=== PATIENT | female | born 2000 | race Two or more races ===

== ENCOUNTER 2024-06-13 12:07 | Emergency (ER) | payer MEDICAID, SELFPAY ==
--- NOTE | 2024-06-13 12:22 | XR_ITS ---
Examination: Complete OB ultrasound, less than 14 weeks, transabdominal Date and time of exam: June 13, 2024 at 1337 hours INDICATIONS: Onset vaginal bleeding today Technique: Obstetrical ultrasound images less than 14 weeks performed via transabdominal imaging Findings: Uterus 8.9 x 3.7 x 4.7 cm No uterine mass or intrauterine gestation Right ovary 2.5 x 1.5 x 2.8 cm arterial flow 20 mm follicular cyst Left ovary 3.0 x 2.4 x 2.9 cm arterial flow IMPRESSION: No uterine mass or intrauterine gestation.
[2024-06-13 12:35] VITALS: BP 121/79; PULSE 82; RESP 16; TEMP 36.9; O2SAT 99; BMI 34.0
[2024-06-13 12:59] LABS: Basophils # (Auto) 0.1 Thou/mm3 (0.0-0.2); Basophils % (Auto) 1 % (0-2.5); Eosinophils # (Auto) 0.1 Thou/mm3 (0.0-0.5); Eosinophils % (Auto) 2 % (0-10); Hemoglobin 13.9 g/dL (12.0-16.0); Immature Granulocytes % (Auto) 0 % (0-0); Immature Granulocytes Auto 0.02 Thou/mm3 (0.00-0.00); Lymphocytes # (Auto) 2.1 Thou/mm3 (1.0-4.8); Lymphocytes % (Auto) 24 % (10-50); Mean Corpuscular HGB Conc 33.1 g/dl (31.0-37.0); Mean Corpuscular Hemoglobin 28.1 pg (25.0-35.0); Mean Corpuscular Volume 85 fL (80-100); Monocytes # (Auto) 0.5 Thou/mm3 (0.0-0.8); Monocytes % (Auto) 6 % (0-12); Neutrophils # (Auto) 5.9 Thou/mm3 (1.8-7.7); Neutrophils % (Auto) 68 % (37-80); Nucleated Red Blood Cell % 0 /100 WBC (0); Platelet Count 311 Thou/mm3 (140-440); RDW Standard Deviation 42.1 fL (36.4-46.3); Red Blood Count 4.95 Miln/mm3 (4.00-5.20); White Blood Count 8.7 Thou/mm3 (3.6-11.0)
[2024-06-13 13:53] LABS: Alanine Aminotransferase 45 U/L (10-49); Albumin, Serum 5.3 gm/dL (3.5-5.0); Aspartate Amino Transferase 30 U/L (0-34); BUN/Creatinine Ratio 14 Ratio (12-20); Bilirubin,Total 0.4 mg/dL (0.3-1.2); Blood Urea Nitrogen 10 mg/dL (9-23); Calcium 10.3 mg/dL (8.3-10.6); Calcium (Corrected) 10.3 mg/dL (8.5-10.1); Chloride 103 mMol/L (98-107); Creatinine (Component) 0.7 mg/dL (0.6-1.3); Estimated Creatinine Clearance 114.2 mL/min (>60); Glucose 96 mg/dL (74-106); Osmolality,Calculated 274 (275-295); Potassium 4.2 mMol/L (3.4-5.1); Sodium 138 mMol/L (136-145); Total Protein 8.3 gm/dL (5.7-8.2); eGFR > 60 See Note
[2024-06-13 13:54] LABS: Albumin/Globulin Ratio 1.8 (1.2-2.2); Alkaline Phosphatase 90 U/L (46-116); Beta HCG,Quantitative 3 mIU/mL (<5.0)
[2024-06-13 14:02] LABS: Anion Gap 9 (7-16); Carbon Dioxide 26.2 mMol/L (20.0-31.0)
--- NOTE | 2024-06-13 14:40 | PD.EDVAGBL ---
ED OB Contraction Preg RMI/HPI General Chief complaint: Vaginal Bleeding Stated complaint: VAGINAL BLEEDING (UNKNOWN WEEKS IUP) Time Seen by Provider: 06/13/24 12:16 Arrival date/time: 06/13/24 12:07 24-year-old female presents to the emergency department today states she had positive test at home patient reports vaginal spotting Limitations: no limitations Related Data Home Medications ?Medication ?Instructions ?Recorded ?Confirmed prenat.vits,dina,[id number] 1 tab PO QDAY 02/16/21 06/30/21 Allergies Allergy/AdvReac Type Severity Reaction Status Date / Time No Known Allergies Allergy Verified 06/13/24 12:09 Review of Systems Review of Systems Systems Reviewed: All systems reviewed, normal except as documented Constitutional Constitutional: Reports system reviewed and no additional complaints, except as documented, Denies fever(s) and Denies headache(s) Eyes Eyes: Reports system reviewed and no additional complaints, except as documented and Denies blurry vision ENT Ears, Nose, Mouth, and Throat: Reports system reviewed and no additional complaints, except as documented, Denies headache(s), Denies nasal congestion and Denies nasal discharge Cardiovascular Cardiovascular: Reports system reviewed and no additional complaints, except as documented, Denies chest pain and Denies dyspnea Respiratory Respiratory: Reports system reviewed and no additional complaints, except as documented, Denies chest congestion, Denies cough and Denies dyspnea Gastrointestinal Gastrointestinal: Reports system reviewed and no additional complaints, except as documented and Denies abdominal pain Genitourinary Genitourinary: Reports system reviewed and no additional complaints, except as documented and Reports abnormal vaginal bleeding Integumentary/Breasts Skin/Breast: Reports system reviewed and no additional complaints, except as documented and Denies rash Neurologic Neurologic: Reports system reviewed and no additional complaints, except as documented, Reports as per HPI and Denies headache(s) Past Medical History Past Medical History NEUROLOGIC: Negative Neurological Disorders CARDIAC: Negative Cardiac Disorders or Congestive Heart Failure RESPIRATORY: Negative Chronic Obstructive Pulmonary Disease (COPD) GASTROINTESTINAL: Negative Gastrointestinal Disorders or Hepatitis GENITOURINARY: Positive Genitourinary Disorders and Kidney Stones (Surgery 2016); Negative Renal Disease REPRODUCTIVE: Negative Endometriosis, Pelvic Inflammatory Disease, Previous Pregnancies or Uterine Prolapse MUSCULOSKELETAL: Negative Musculoskeletal Disorders ENDOCRINE: Negative Endocrine Disorders, Diabetes Mellitus Type 1 or Diabetes Mellitus Type 2 HEMATOLOGIC: Negative Blood Disorders OTHER HISTORY: Positive Hospitalization (Kidney Stones 2016) and Chicken Pox (approx 5y/o); Negative Autoimmune Disease, Down Syndrome, Developmental Delay, Shingles, Falls, Blood Transfusions, Blood Transfusion Reaction, Anesthesia Reactions, Organ Transplant, Chemotherapy, Radiation Therapy, Hyperbaric Therapy, MRSA, VRSA, Vancomycin-Resistant Enterococci, Human Immunodeficiency Virus (HIV), Measles, Mumps, Rubella (Citizen [place] Measles), Pertussis, Clostridium Difficile or Cancer Family History FAMILY HISTORY: Negative Family Psychiatric Problems, Family Respiratory Disorders, Family Cardiac Disorders, Family Gastrointestinal Problems, Family Cancer, Family Surgery or Family Anesthesia Reaction Surgical History SURGICAL: Negative Cardiac Surgery, Endocrine Surgery, Ear Surgery, Abdominal Surgery, Nephrectomy, Transurethral Resection, Joint Replacement, Neurologic Surgery, Mastectomy, Lumpectomy, Hysterectomy, Tubal Ligation, Section or Organ Transplant Social History SMOKING STATUS: Never smoker SECOND HAND EXPOSURE: No ED Exam General Limitations: Present no limitations General appearance: Present alert and in no apparent distress Head Head exam: Present atraumatic Eye Eye exam: Present normal appearance, PERRL and EOMI; Absent conjunctival injection ENT ENT exam: Present normal exam, normal oropharynx and mucous membranes moist Neck Neck exam: Present normal inspection, full ROM and trachea midline Chest Chest inspection: Present normal inspection and symmetric chest wall rise Respiratory Respiratory exam: Present normal lung sounds bilaterally; Absent respiratory distress Cardiovascular Cardiovascular exam: Present regular rate, normal rhythm and normal heart sounds Abdominal Exam Abdominal exam: Present soft and normal bowel sounds; Absent distention, tenderness, guarding, rebound, rigidity, Banda's sign or tenderness at McBurney's Point Abdominal tenderness: Absent RUQ or RLQ Extremities Exam Extremities exam: Present normal inspection and full ROM Back Exam Back exam: Present normal inspection and full ROM Neurological Exam Neurological exam: Present alert, oriented X3 and CN II-XII intact Psychiatric Psychiatric exam: Present normal affect and normal mood Skin Skin exam: Present warm, dry, intact and normal color; Absent rash Course Quality Measures none Orders Category Date Time Status US OB <= 14 weeks fetus Stat Exams 06/13/24 12:22 Completed ABO/RH Type Stat Lab 06/13/24 12:46 Completed Beta HCG,Quantitative Stat Lab 06/13/24 12:46 Completed CBC Stat Lab 06/13/24 12:46 Completed Comprehensive Metabolic Panel Stat Lab 06/13/24 12:46 Completed Vital Signs Vital signs: Vital Signs Temperature 98.4 F 06/13/24 12:35 Pulse Rate 82 06/13/24 12:35 Respiratory Rate 16 06/13/24 12:35 Blood Pressure 121/79 06/13/24 12:35 Pulse Oximetry (%) 99 06/13/24 12:35 Oxygen Delivery Method Room Air 06/13/24 12:35 O2 saturation 99% room air within normal limits Vaginal Bleeding MDM Narrative MDM Narrative: 24-year-old female presents to the emergency department today states she had positive test at home patient reports vaginal spotting On exam patient does not appear ill or toxic in no acute distress Lab work as well as ultrasound obtained Lab work hCG is 3 ultrasound shows no evidence of I explained to the patient most likely that she will not have a baby and this is most likely missed but she will have to have repeat lab work to confirm this Patient discharged home in no distress to follow-up with primary care doctor in the next 24 to 48 hours and for any worsening symptoms to return to the ER immediately Patient data External records reviewed:: [facility] previous records Clinical information provided by:: patient Social determinants that could affect healthcare access:: none Patient has the following chronic illnesses:: None How is presenting disease/condition affected by chronic disease/condition?: no chronic disease Evaluation data The following diagnostics were reviewed and interpreted by me:: lab results and radiology exam(s) Lab and/or radiology exams considered but not ordered:: Labs radiology obtained Interpretation Summary: Reviewed by me Medications / Prescriptions Medications or Prescriptions considered but not ordered:: Given no meds Medication administrations:: Given no meds Consultations Consultation(s) initiated? (list below): No Diagnosis Vaginal Bleeding Differential Diagnosis: missed and threatened Most likely diagnosis given after review of the tests above:: Threatened Admission Indicated Admission indicated?: not indicated Admission Request Was there a request for admission?: No Disposition Plan Disposition Plan: Discharge Discharge Attestation Discharge Attestation: The patient and all family members were given an opportunity to ask questions and understood the discharge instructions. Discharge instructions specifically effects, indications for sooner follow up or return to the emergency department, and the expected course of current diagnosis. Patient condition: Stable Discharge Plan Plan Patient Disposition: HOME (Self Care) Disposition Comment: Stable Prescriptions/Referrals Prescriptions/Med Rec: No Action Vitamin Tablet 1 tab PO QDAY Referrals: Matheus Palacios MD [Primary Care Provider] - 06/14/24 Problem List Clinical Impression: Vaginal bleeding Patient/Caregiver Discharge Instructions Education Materials: Understanding Uterine Bleeding Additional Instructions: Please follow up with your primary care doctor in the next 24-48hrs for any worsening symptoms return here immediately Print Language: Luxembourgish Stand Alone Forms: Gill Award Info., Patient Portal Info Letter Attestation Attestation The patient was seen by the midlevel practitioner. I, the co-signing physician, was present during the entire ER visit. While I did not physically examine the patient, I was available for consultation as needed.
== END 2024-06-13 14:43 | disposition home or self-care (01) ==
PROVIDERS: Nurse Practitioner Primary Care; Emergency Provider Emergency Medicine; PCP Family Medicine
DX: N93.9 Abnormal uterine and vaginal bleeding, unspecified (principal)
CPT/HCPCS: 36415; 76801; 80053; 84702; 85025; 86900; 86901; 99284

== ENCOUNTER 2024-10-30 15:29 | Outpatient (AMB) | payer MEDICAID, SELFPAY ==
[2024-10-30 15:35] VITALS: BP 128/77; PULSE 105; RESP 18; TEMP 36.2; O2SAT 98; BMI 33.0
--- NOTE | 2024-10-30 15:35 | OBCLNT_ITS ---
Vital Signs 10/30/24 15:35 Height 1.52 m Height Method Stated Weight 76.374 kg Weight Measurement Method Standing Scale BMI 33.0 BP 128/77 Blood Pressure Source Automatic Cuff Blood Pressure Location Left Upper Arm Position Sitting Respiration 18 Pulse 105 H Pulse Source Monitor Temp 97.2 F Temp Source Oral Pulse Oximetry (%) 98 Oxygen Delivery Method Room Air Allergies/Home Meds Allergies & Medications Allergies No Known Allergies Allergy (Verified 10/30/24 15:36) Medication Reconciliation prenat.vits,dina,[id number] 1 tab PO QDAY 02/16/21 [History Confirmed 10/30/24] ondansetron 4 mg disintegrating tablet 4 mg PO Q6H PRN nausea and vomiting 30 days #120 tabs 10/16/24 [Rx Confirmed 10/30/24] Intake Visit Data Collection New Patient or Established: Established Patient (seen at [facility] within 3 years) Reason for Visit:: 2-week follow-up status-post initial OB visit Seen by Clinical Staff ONLY (RN/MA): No Bicycle Repair Technician Required: No Do You Feel Safe at Home: Yes Authorities Contacted: N/A PCP or OBGYN visit in last 3 months: Yes Date of Last PCP or OBGYN visit: 10/16/24 Hx Now: Yes Are you currently on any form of Control: No Pain Present Currently: No Pain Scale Used: Harding-Bradford/Numerical Pain scale:: 0 Smoking Status Smoking Status: Never smoker Questionnaires Covid-19 Vaccine Questionnaire Has patient been vacinated for Covid-19 Have you been vacinated for Covid-19: Yes PHQ-9 PHQ-2 Over the last 2 weeks, how often have you been bothered by any of the following problems? 1. Little interest or pleasure in doing things: not at all 2. Feeling down, depressed, or hopeless: not at all Total score: 0 PHQ-9 3. Trouble falling or staying asleep, or sleeping too much: Not at all 4. Feeling tired or having little energy: Not at all 5. Poor appetite or overeating: Not at all 6. Feeling bad about yourself - or that you are a failure or have let yourself or your family down: Not at all 7. Trouble concentrating on things, such as reading the newspaper or watching television: Not at all 8. Moving or speaking so slowly that other people could have noticed? - Or the opposite - being so fidgety or restless that you have been moving around a lot more than usual: not at all 9. Thoughts that you would be better off or of hurting yourself in some way: Not at all Total score: 0 If you checked off any problems, how difficult have these problems made it for you to do your work, take care of things at home, or get along with other peopl e?: not difficult at all Source: Developed by Drs. Luc Haji, Lacey Marion, Con Tejeda and colleagues, with an educational christa from [employer]. 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: Yes Past Medical History Past Medical History Have you ever been diagnosed with any of the following: Neurological Problems Cerebrovascular Accident (CVA): No Transient Ischemic Attacks (TIA): No Dementia: No Alzheimer's Disease: No Parkinson's Disease: No Brain Tumor: No Guillain-Katy Syndrome: No Cardiology Problems Myocardial Infarction: No Cardiac Arrhythmia: No Atrial Fibrillation: No Angina: No Congestive Heart Failure: No Respiratory Problems Chronic Obstructive Pulmonary Disease (COPD): No Asthma: No Bronchitis: No Emphysema: No Hx Cough: No Cough: No Wheezing: No Chest Deformities: No Smoking: No Smoking Cessation Counseling: No Smoking Exposure: No Tobacco Use: No Stomache/Intestinal Problems Liver Cancer: No Hepatitis: No Gall Bladder Disease: No Gaming's Esophagus: No Colitis: No Ulcerative Colitis: No Genital/Urinary Problems Renal Disease: No Kidney Stones: Yes (Surgery 2016) Reproductive Problems Endometriosis: No Pelvic Inflammatory Disease: No Previous Pregnancies: Yes Uterine Prolapse: No Head,Eye,Nose,Throat Problems Cataracts: No Glaucoma: No Blind: No Retinal Detachment: No Macular Degeneration: No Chronic Ear Infections: No Deafness: No Eye Prosthesis: No Endocrine Problems Diabetes Mellitus Type 1: No Diabetes Mellitus Type 2: No Blood Problems Anemia: No Leukemia: No Hemophilia: No Thalassemia: No Psychologic Problems Schizophrenia: No Recreational Drug Use: No Bipolar Disorder: No Depression: No Anxiety: No Behavior Problems: No Other Problems Hospitalization: Yes (Kidney Stones 2015) Down Syndrome: No Developmental Delay: No Shingles: No Falls: No Blood Transfusions: No Blood Transfusion Reaction: No Anesthesia Reactions: No Organ Transplant: No Chemotherapy: No Radiation Therapy: No Hyperbaric Therapy: No MRSA: No VRSA: No Vancomycin-Resistant Enterococci: No Human Immunodeficiency Virus (HIV): No Chicken Pox: Yes (approx 5y/o) Measles: No Mumps: No Rubella ([place] Measles): No Pertussis: No Clostridium Difficile: No Cancer: No Surgical History Hysterectomy: No History of Present Illness HPI Narrative Lizzie Hernandez presents for a 2-week follow-up after her initial OB visit. She is currently and at approximately 15 weeks gestation based on her last menstrual period of July 13. The patient's primary concern during this visit was clarification of her gestational age and estimated due date. She noted a discrepancy between the ultrasound measurements from her previous visit, which showed 13 weeks and 4 days, and the doctor's initial assessment of 9 weeks. After discussion and review of dates, it was determined that the patient is likely around 15 weeks , with a tentative due date of April 19. However, this will be confirmed at her upcoming 20-week ultrasound with a specialist. Lizzie reports no specific complaints or concerns regarding her at this time. She appears to be adhering to her care plan and is following up as recommended. Obstetric History - GPAL: A0 L0 - Current : - Estimated due date: April 19, 2025 (working date based on LMP) - Last menstrual period: July 13, 2024 - Gestational age: 15 weeks 4 days (as of October 30, 2024) Review of Systems Review of Systems Systems Reviewed: All systems reviewed, normal except as documented Visit OB Visit Log OB Flowsheet Initial Weight: Not Recorded Date -?-?-?-?-?-?-?-?-?-?-?-?- EGA Weight Edema CTX Effacement BP Fundal ht Pres Dilation Effacement Station Visit Note Alb Glu FHR Mov 10/30/24 -?-?-?-?-?-?-?-?-?-?-?-?- 15w 4d 76.374 kg 128/77 Labo ratory, Imaging, and Diagnostic Test Results - labs: - Hepatitis B: Negative - Hepatitis C: Negative - RPR: Non-reactive - Rubella: Non-immune - ABO blood type: O - Rh factor: Positive - Antibody screen: Negative - HIV: Negative - Gonorrhea: Negative - Chlamydia: Negative - CBC: - Hemoglobin: 13.2 g/dL - Platelets: 269 - Maternity 21 genome testing: - Negative screening for trisomies and commonly tested genetic mutations - gender: Female - Ultrasound: - Gestational age: 13 weeks and 4 days . Plan: - Estimated due date (PANDA) tentatively s et as April 19, pending confirmation at anatomy ultrasound - Referral to [facility] for 20-week anatomy ultrasound - Office staff to schedule appointment and obtain insurance approval - Follow-up appointment in one month - Await specialist ultrasound to confirm gestational age and PANDA 145 PANDA Calculator Estimated Delivery Date Method Current WG Current Estimate 04/19/25 LMP (Certain) 15w 4d Exam General Limitations: no limitations General Appearance: alert, in no apparent distress, comfortable, cooperative, healthy appearing, well developed and well groomed Head Head exam: atraumatic, normocephalic and normal inspection Chest Chest inspection: Present normal inspection and symmetric chest wall rise Abdominal Abdominal exam: Present soft and normal bowel sounds Psych Psychiatric exam: Present normal affect and normal mood Skin Skin exam: Present warm, dry, intact and normal color Assessment & Plan Diagnosis / Problem List (1) Supervision of high risk , unspecified, second trimester: Status: Acute Plan Lizzie Hernandez presents for a 2-week follow-up after initial OB visit at approximately 15 weeks gestation. Intrauterine Assessment: Patient is at approximately 15 weeks gestation based on last menstrual period (LMP) of July 13. Initial ultrasound measurements showed some discrepancy, measuring at 9 weeks when LMP calculations suggested 13 weeks. labs, including CBC, hepatitis B and C, RPR, HIV, gonorrhea, and chlamydia screening, were all negative or within normal limits. Maternity 21 genome testing was negative for trisomies and commonly tested genetic mutations. Blood type is O positive with negative antibody screen. Patient is rubella non- immune. Plan: - Estimated due date (PANDA) tentatively set as April 19, pending confirmation at anatomy ultrasound - Referral to [facility] for 20-week anatomy ultrasound - Office staff to schedule appointment and obtain insurance approval - Follow-up appointment in one month - Await specialist ultrasound to confirm gestational age and PANDA Educated the patient on the importance of care, including taking vitamins with folic acid, iron, and calcium. Emphasized avoiding alcohol, smoking, and certain medications. Discussed common symptoms like nausea and fatigue, advising small, frequent meals and adequate hydration. Explained the need for regular check-ups and recommended safe physical activities. Instructed on signs of complications, such as severe cramping or bleeding, and when to seek immediate medical attention. Highlighted the importance of a balanced diet and avoiding high-risk foods. Encouraged open communication about any concerns or questions. Encouraged keeping up with all appointments and tests Office Procedures OB Clinic LOC & Office Proc's Nursing/Assessment Patient Status: Established Patient OB Clinic Nursing Assessment: BP Monitoring, Medication Reconciliation, Update PMH in EMR and Vital Signs OB Clinic Coordination of Care: Consent,records obtained, informed consent, Lab and Imaging orders and Staff clarify orders Special Needs: Heart tones Established Patient Charge Established Patient Point Assignment: 105 Established Patient Point Charge: EP Level 3 (80-115)
== END 2024-10-30 16:08 | disposition home or self-care (01) ==
LOC: HODSOBC 15:29
PROVIDERS: PCP Family Medicine; Referring Provider Family Medicine; Supervising Provider Obstetrics & Gynecology; Visit Provider Obstetrics & Gynecology
DX: O09.92 Supervision of high risk pregnancy, unspecified, second trimester (principal); Z3A.15 15 weeks gestation of pregnancy; Z78.9 Other specified health status
CPT/HCPCS: 99213; G0463

== ENCOUNTER 2024-11-27 14:08 | Outpatient (AMB) | payer MEDICAID, SELFPAY ==
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
[2024-11-27 14:23] VITALS: BP 124/77; PULSE 89; RESP 18; TEMP 36.2; O2SAT 98; BMI 32.4
== END 2024-11-27 14:32 | disposition home or self-care (01) ==
LOC: HODSOBC 14:08
PROVIDERS: PCP Obstetrics & Gynecology; Referring Provider Obstetrics & Gynecology; Supervising Provider Obstetrics & Gynecology; Visit Provider Obstetrics & Gynecology
DX: O09.92 Supervision of high risk pregnancy, unspecified, second trimester (principal); Z3A.19 19 weeks gestation of pregnancy
CPT/HCPCS: 99213; G0463

== ENCOUNTER 2024-12-09 17:39 | Observation (INO) | payer MEDICAID, SELFPAY ==
[2024-12-09] VITALS (14 sets, daily range): BP systolic 119; BP diastolic 74; PULSE 79–109; RESP 18–99; TEMP 36.8; O2SAT 93–100; BMI 31.8
--- NOTE | 2024-12-09 18:07 | XR_ITS ---
Examination: Complete OB ultrasound greater than 14 weeks Date and time of exam: December 09, 2024 1858 hours INDICATIONS: Pelvic pain beginning 4 days ago, labor evaluation Findings: Viable intrauterine single fetus with single amniotic sac presentation cephalic Cardiac motion 150 BPM Placenta anterior grade 1 Umbilical cord insertion seen Amniotic fluid index 13.8 cm spine posterior Cervix 2.2 cm Right ovary 3.4 cm artery outflow left ovary 1.8 cm arterial flow. Composite estimated gestational age based on BPD, head circumference, abdominal circumference, femur length is 17 weeks 2 days Estimated weight 184 g. Survey of intracranial anatomy, spinal anatomy, abdominal anatomy, four-chamber heart performed with no abnormalities identified. Impression: Viable intrauterine gestation cephalic presentation.
[2024-12-09] MEDS: ACETAMINOPHEN 325 MG TABLET 650 MG PO (18:25)
== END 2024-12-09 20:30 | disposition home or self-care (01) ==
PROVIDERS: Admitting Provider Obstetrics & Gynecology; Visit Provider Obstetrics & Gynecology
DX: O26.892 Other specified pregnancy related conditions, second trimester (principal); Z3A.17 17 weeks gestation of pregnancy; R10.2 Pelvic and perineal pain; M54.9 Dorsalgia, unspecified
CPT/HCPCS: 59025; 59899; 76805; G0378; A9270

== ENCOUNTER 2024-12-25 15:05 | Outpatient (AMB) | payer MEDICAID, SELFPAY ==
--- NOTE | 2024-12-25 15:50 | OBCLNT_ITS ---
Vital Signs 12/25/24 15:52 Weight 75.807 kg Weight Measurement Method Standing Scale BP 113/73 Blood Pressure Source Automatic Cuff Blood Pressure Location Right Upper Arm Position Sitting Respiration 17 Pulse 101 H Pulse Source Monitor Temp 98.2 F Temp Source Temporal Artery Scan Pulse Oximetry (%) 97 Oxygen Delivery Method Room Air Allergies/Home Meds Allergies & Medications Allergies No Known Allergies Allergy (Verified 12/25/24 15:53) Medication Reconciliation prenat.vits,dina,[id number] 1 tab PO QDAY 02/16/21 [History Confirmed 12/25/24] ondansetron 4 mg disintegrating tablet 4 mg PO Q6H PRN nausea and vomiting 30 days #120 tabs 10/16/24 [Rx Confirmed 12/25/24] Intake Visit Data Collection New Patient or Established: Established Patient (seen at [facility] within 3 years) Reason for Visit:: OBC Seen by Clinical Staff ONLY (RN/MA): No It Program Manager Required: No Do You Feel Safe at Home: Yes Authorities Contacted: N/A PCP or OBGYN visit in last 3 months: Yes Date of Last PCP or OBGYN visit: 12/09/24 Hx Now: Yes Are you currently on any form of Control: No Pain Present Currently: No Pain Scale Used: Harding-Bradford/Numerical Pain scale:: 0 Smoking Status Smoking Status: Never smoker Questionnaires Covid-19 Vaccine Questionnaire Has patient been vacinated for Covid-19 Have you been vacinated for Covid-19: No PHQ-9 PHQ-2 Over the last 2 weeks, how often have you been bothered by any of the following problems? 1. Little interest or pleasure in doing things: not at all 2. Feeling down, depressed, or hopeless: not at all Total score: 0 PHQ-9 3. Trouble falling or staying asleep, or sleeping too much: Not at all 4. Feeling tired or having little energy: Not at all 5. Poor appetite or overeating: Not at all 6. Feeling bad about yourself - or that you are a failure or have let yourself or your family down: Not at all 7. Trouble concentrating on things, such as reading the newspaper or watching television: Not at all 8. Moving or speaking so slowly that other people could have noticed? - Or the opposite - being so fidgety or restless that you have been moving around a lot more than usual: not at all 9. Thoughts that you would be better off or of hurting yourself in some way: Not at all Total score: 0 If you checked off any problems, how difficult have these problems made it for you to do your work, take care of things at home, or get along with other people?: not difficult at all Source: Developed by Drs. Luc Haji, Lacey Marion, Con Tejeda and colleagues, with an educational christa from [employer]. 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 No contractions, LOF, VB and reports good FM. Denies GUADALUPE, VC, and epigastric pain. - Lizzie Hernandez is a 2 para 1 at 23 weeks and 4 days gestation presenting for routine care. - Estimated due date: 04/19/2025 - Last seen 4 weeks ago for routine visit, reported doing well at that time. - Maternal ultrasound was scheduled, but patient reports not being called for appointment yet. - Patient was given lab slip for glucose screening at previous visit. - Denies any new symptoms or concerns. Review of Systems Review of Systems Systems Reviewed: All systems reviewed, normal except as documented Care OB Visit Log OB Flowsheet Initial Weight: Not Recorded Date -?-?-?-?-?-?-?-?-?-?-?-?- EGA Weight BP Alb Glu CTX Pres Fundal ht FHR Mov Dilation Station Effaceme nt Hx Notes Visit Note 10/30/24 -?-?-?-?-?-?-?-?-?-?-?-?- 15w 4d 76.374 kg 128/77 145 Laboratory, Imaging, and Diagnostic Test Results - labs: - Hepatitis B: Negative - Hepatitis C: Negative - RPR: Non-reactive - Rubella: Non-immune - ABO blood type: O - Rh factor: Positive - Antibody screen: Negative - HIV: Negative - Gonorrhea: Negative - Chlamydia: Negative - CBC: - Hemoglobin: 13.2 g/dL - Platelets: 269 - Maternity 21 genome testing: - Negative screening for trisomies and commonly tested genetic mutations - gender: Female - Ultrasound: - Gestational age: 13 weeks and 4 days . Plan: - Estimated due date (PANDA) tentatively s et as April 19, pending confirmation at anatomy ultrasound - Referral to [facility] in [place] for 20-week anatomy ultrasound - Office staff to schedule appointment and obtain insurance approval - Follow-up appointment in one month - Await specialist ultrasound to confirm gestational age and PANDA 11/27/24 -?-?-?-?-?-?-?-?-?-?-?-?- 19w 4d 74.956 kg 124/77 at 19 weeks and 4 days gestation, presents for routine care. Reports feeling well with active FM+, mild back pain considered normal. Denies nausea, vomiting, or cramping. labs completed; awaiting MFM anatomy ultrasound. Needs vitamin refill. FHT 163 bpm. Plan: Refill vitamins ([facility]) Lab slip for glucose screen Reminder for MFM anatomy scan Follow-up in 2 weeks precautions 12/25/24 -?-?-?-?-?-?-?-?-?-?-?-?- 23w 4d 75.807 kg 113/73 at 23w4d with PANDA 04/19/25 presents for routine care. Reports good FM, no CTX/LOF/VB. Denies GUADALUPE/VC/epigastric pain. One-hour GTT was 125 mg/dL (normal). Patient states MFM ultrasound was scheduled but she hasn?t been contacted. Concerned about position, but this is normal for gestational age. No new complaints. Plan: Will call [facility]?s to gurmeet simona [facility] appointment status. Patient to complete anatomy scan at [facility]. Continue routine care. Review results when available. Reinforce FM monitoring, preeclampsia precautions, and safety planning for third trimester. Follow up in 4 weeks. PANDA Calculator Estimated Delivery Date Method Current WG Current Estimate 04/19/25 LMP (Certain) 23w 5d Exam General General Appearance: alert, in no apparent distress and healthy appearing Head Head exam: atraumatic Neck Neck exam: Present normal inspection and trachea midline Chest Chest inspection: Present normal inspection and symmetric chest wall rise External exam: Present normal external exam; Absent tenderness Neuro Neurological exam: Present oriented X3 Psych Psychiatric exam: Present normal affect and normal mood Office Procedures OB Clinic LOC & Office Proc's Nursing/Assessment Patient Status: Established Patient OB Clinic Nursing Assessment: Medication Reconciliation, Update PMH in EMR and Vital Signs OB Clinic Coordination of Care: Complex Care and Chronic Disease 1-5, Consent,records obtained, informed consent, Education Simp Pt/Fam and Staff clarify orders Special Needs: Heart tones Established Patient Charge Established Patient Point Assignment: 115 Established Patient Point Charge: EP Level 3 (80-115) Assessment & Plan Diagnosis / Problem List (1) Supervision of high risk , unspecified, second trimester: Status: Acute
[2024-12-25 15:52] VITALS: BP 113/73; PULSE 101; RESP 17; TEMP 36.8; O2SAT 97
== END 2024-12-25 16:25 | disposition home or self-care (01) ==
LOC: HODSOBC 15:05
PROVIDERS: PCP Obstetrics & Gynecology; Referring Provider Obstetrics & Gynecology; Supervising Provider Obstetrics & Gynecology; Visit Provider Obstetrics & Gynecology
DX: O09.92 Supervision of high risk pregnancy, unspecified, second trimester (principal); Z3A.23 23 weeks gestation of pregnancy
CPT/HCPCS: 99213; G0463

== ENCOUNTER 2025-01-19 19:08 | Observation (INO) | payer MEDICAID, SELFPAY ==
[2025-01-19] VITALS (32 sets, daily range): BP systolic 112–123; BP diastolic 59–67; PULSE 91–116; RESP 16–99; TEMP 37.2; O2SAT 97–100; BMI 32.8
--- NOTE | 2025-01-19 19:53 | XR_ITS ---
Examination: Complete OB ultrasound greater than 14 weeks Date and time of exam: O, 2024, 2020 hours INDICATIONS: Pelvic cramping beginning 2 hours ago Findings: Viable intrauterine single fetus with single amniotic sac presentation breech Cardiac motion 155 BPM Placenta anterior grade 1 Umbilical cord insertion 3 vessel seen Amniotic fluid index 14.8 cm Cervix 4.2 cm Ovaries are obscured by bowel gas Composite estimated gestational age based on BPD, head circumference, abdominal circumference, femur length is 23 weeks 0 days Estimated weight 537.8 g. Survey of intracranial anatomy, spinal anatomy, abdominal anatomy, four-chamber heart performed with no abnormalities identified. Impression: Viable intrauterine gestation breech presentation.
[2025-01-19] MEDS: RINGERS LACTATED 1000 ML 1,000 ML 999 ML IV (20:05)
[2025-01-19 20:41] LABS: Collection Type, Urine Clean Catch
[2025-01-19 20:47] LABS: Basophils # (Auto) 0.0 Thou/mm3 (0.0-0.2); Basophils % (Auto) 0 % (0-2.5); Eosinophils # (Auto) 0.0 Thou/mm3 (0.0-0.5); Eosinophils % (Auto) 0 % (0-10); Hematocrit 33.2 % (36.0-46.0); Hemoglobin 11.5 g/dL (12.0-16.0); Immature Granulocytes Auto 0.06 Thou/mm3 (0.00-0.00); Lymphocytes # (Auto) 1.4 Thou/mm3 (1.0-4.8); Lymphocytes % (Auto) 9 % (10-50); Mean Corpuscular HGB Conc 34.6 g/dl (31.0-37.0); Mean Corpuscular Hemoglobin 29.6 pg (25.0-35.0); Mean Corpuscular Volume 85 fL (80-100); Monocytes # (Auto) 0.6 Thou/mm3 (0.0-0.8); Monocytes % (Auto) 4 % (0-12); Neutrophils # (Auto) 12.9 Thou/mm3 (1.8-7.7); Neutrophils % (Auto) 86 % (37-80); Nucleated Red Blood Cell # 0.00 Thou/mm3 (0.00-0.00); Nucleated Red Blood Cell % 0 /100 WBC (0); Platelet Count 247 Thou/mm3 (140-440); RDW Standard Deviation 43.8 fL (36.4-46.3); Red Blood Count 3.89 Miln/mm3 (4.00-5.20); White Blood Count 15.0 Thou/mm3 (3.6-11.0)
[2025-01-19] MEDS: RINGERS LACTATED 1000 ML 1,000 ML 100 ML IV (21:00)
[2025-01-19 21:01] LABS: Partial Thromboplastin Time 24.2 Seconds (22.0-36.0)
[2025-01-19 21:09] LABS: Bilirubin,Urine Negative (Negative); Blood,Urine 1+ (Negative); Clarity,Urine Turbid (Clear/Hazy); Color,Urine Yellow (Lt Yel-Yel); Glucose, Urine 1+ (Negative); Ketones,Urine Negative (Negative); Leukocyte Esterase,Urine Negative (Negative); Nitrite,Urine Negative (Negative); PH,Urine 7.0 (5.0-7.0); Protein,Urine 2+ (Neg - Trace); RBC,Urine 37 /hpf (0-3); Specific Gravity,Urine 1.022 (1.001-1.035); Squamous Epithelial Cell,Urine 47 /hpf (0-5); Urobilinogen,Urine Negative mg/dL (0.0-1.0); WBC,Urine 77 /hpf (0-5)
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
[2025-01-19 22:53] LABS: Alanine Aminotransferase 9 U/L (10-49); Albumin, Serum 3.9 gm/dL (3.5-5.0); Albumin/Globulin Ratio 1.6 (1.2-2.2); Alkaline Phosphatase 61 U/L (46-116); Anion Gap 12 (7-16); Aspartate Amino Transferase 14 U/L (0-34); BUN/Creatinine Ratio 12 Ratio (12-20); Bilirubin,Total 0.3 mg/dL (0.3-1.2); Blood Urea Nitrogen 6 mg/dL (9-23); Calcium 9.3 mg/dL (8.3-10.6); Calcium (Corrected) 9.4 mg/dL (8.5-10.1); Carbon Dioxide 20.6 mMol/L (20.0-31.0); Chloride 109 mMol/L (98-107); Creatinine (Component) 0.5 mg/dL (0.6-1.3); Estimated Creatinine Clearance 156.9 mL/min (>60); Globulin 2.4 gm/dL (2.3-3.5); Glucose 91 mg/dL (74-106); Osmolality,Calculated 280 (275-295); Potassium 3.6 mMol/L (3.4-5.1); Sodium 142 mMol/L (136-145); Total Protein 6.3 gm/dL (5.7-8.2); eGFR > 60 See Note
== END 2025-01-19 23:05 | disposition home or self-care (01) ==
PROVIDERS: Admitting Provider Obstetrics & Gynecology; Visit Provider Obstetrics & Gynecology
DX: O36.8120 Decreased fetal movements, second trimester, not applicable or unspecified (principal); O32.1XX0 Maternal care for breech presentation, not applicable or unspecified; O26.892 Other specified pregnancy related conditions, second trimester; R10.2 Pelvic and perineal pain; Z3A.23 23 weeks gestation of pregnancy
CPT/HCPCS: 36415; 59025; 59899; 76805; 80053; 81001; 85025; 85730; J7120

== ENCOUNTER 2025-01-22 15:30 | Outpatient (AMB) | payer MEDICAID, SELFPAY ==
[2025-01-22 15:38] VITALS: BP 116/72; PULSE 72; RESP 17; TEMP 36.8; O2SAT 97
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
== END 2025-01-22 15:58 | disposition home or self-care (01) ==
LOC: HODSOBC 15:30
PROVIDERS: Supervising Provider Obstetrics & Gynecology; Visit Provider Obstetrics & Gynecology
DX: O09.892 Supervision of other high risk pregnancies, second trimester (principal); O24.414 Gestational diabetes mellitus in pregnancy, insulin controlled; O32.1XX0 Maternal care for breech presentation, not applicable or unspecified; Z3A.27 27 weeks gestation of pregnancy
CPT/HCPCS: 99214; G0463

== ENCOUNTER 2025-02-19 10:08 | Outpatient (AMB) | payer MEDICAID, SELFPAY ==
[2025-02-19 10:20] VITALS: BP 120/68; PULSE 79; RESP 16; TEMP 36.6; O2SAT 98; BMI 33.0
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
== END 2025-02-19 10:41 | disposition home or self-care (01) ==
LOC: HODSOBC 10:08
PROVIDERS: Supervising Provider Obstetrics & Gynecology; Visit Provider Obstetrics & Gynecology
DX: O09.892 Supervision of other high risk pregnancies, second trimester (principal); O24.414 Gestational diabetes mellitus in pregnancy, insulin controlled; Z3A.27 27 weeks gestation of pregnancy
CPT/HCPCS: 99214; G0463

== ENCOUNTER 2025-03-10 21:54 | Observation (INO) | payer MEDICAID, SELFPAY ==
[2025-03-10 17:55] VITALS: BP 121/78; PULSE 91; RESP 18; TEMP 36.9; O2SAT 97
--- NOTE | 2025-03-10 18:31 | XR_ITS ---
Examination: Complete OB ultrasound greater than 14 weeks Date and time of exam: March 10, 2025, 0727 hrs. Indications: Lower back pain pelvic pain beginning 2 days ago. Findings: Viable intrauterine single fetus with single amniotic sac presentation cephalic spine posterior Cardiac motion 152 BPM Placenta anterior grade 2 Umbilical cord insertion seen. Amniotic fluid index 0.9 cm spine posterior Cervix 2.6 cm Ovaries obscured by bowel gas. Composite estimated gestational age based on BPD, head circumference, abdominal circumference, femur length is 29 weeks 5 days Estimated weight 1362 g. Survey of intracranial anatomy, spinal anatomy, abdominal anatomy, four-chamber heart performed with no abnormalities identified. Impression: Viable intrauterine gestation cephalic presentation Placenta anterior grade 2 no abruption.
[2025-03-10] MEDS: ACETAMINOPHEN 500 MG TABLET 1000 MG PO (18:54)
[2025-03-10 18:56] LABS: Basophils # (Auto) 0.0 Thou/mm3 (0.0-0.2); Basophils % (Auto) 0 % (0-2.5); Eosinophils # (Auto) 0.2 Thou/mm3 (0.0-0.5); Eosinophils % (Auto) 1 % (0-10); Hematocrit 33.5 % (36.0-46.0); Hemoglobin 11.4 g/dL (12.0-16.0); Immature Granulocytes Auto 0.08 Thou/mm3 (0.00-0.00); Lymphocytes # (Auto) 1.7 Thou/mm3 (1.0-4.8); Lymphocytes % (Auto) 14 % (10-50); Mean Corpuscular HGB Conc 34.0 g/dl (31.0-37.0); Mean Corpuscular Hemoglobin 29.6 pg (25.0-35.0); Mean Corpuscular Volume 87 fL (80-100); Monocytes # (Auto) 0.9 Thou/mm3 (0.0-0.8); Monocytes % (Auto) 7 % (0-12); Neutrophils # (Auto) 9.4 Thou/mm3 (1.8-7.7); Neutrophils % (Auto) 77 % (37-80); Nucleated Red Blood Cell # 0.00 Thou/mm3 (0.00-0.00); Nucleated Red Blood Cell % 0 /100 WBC (0); Platelet Count 233 Thou/mm3 (140-440); RDW Standard Deviation 41.6 fL (36.4-46.3); Red Blood Count 3.85 Miln/mm3 (4.00-5.20); White Blood Count 12.3 Thou/mm3 (3.6-11.0)
[2025-03-10 19:17] LABS: Alanine Aminotransferase 9 U/L (10-49); Albumin, Serum 3.8 gm/dL (3.5-5.0); Albumin/Globulin Ratio 1.2 (1.2-2.2); Alkaline Phosphatase 80 U/L (46-116); Anion Gap 10 (7-16); Aspartate Amino Transferase 16 U/L (0-34); BUN/Creatinine Ratio 12 Ratio (12-20); Bilirubin,Total 0.2 mg/dL (0.3-1.2); Blood Urea Nitrogen 6 mg/dL (9-23); Calcium 9.2 mg/dL (8.3-10.6); Calcium (Corrected) 9.4 mg/dL (8.5-10.1); Carbon Dioxide 20.8 mMol/L (20.0-31.0); Chloride 108 mMol/L (98-107); Creatinine (Component) 0.5 mg/dL (0.6-1.3); Estimated Creatinine Clearance 160.4 mL/min (>60); Globulin 3.1 gm/dL (2.3-3.5); Glucose 102 mg/dL (74-106); Osmolality,Calculated 275 (275-295); Potassium 3.7 mMol/L (3.4-5.1); Sodium 139 mMol/L (136-145); Total Protein 6.9 gm/dL (5.7-8.2); eGFR > 60 See Note
[2025-03-10 19:44] LABS: Collection Type, Urine Voided
[2025-03-10 19:50] LABS: Beta HCG,Quantitative 9054 mIU/mL (<5.0)
[2025-03-10 20:05] LABS: Bilirubin,Urine Negative (Negative); Blood,Urine Negative (Negative); Clarity,Urine Clear (Clear/Hazy); Color,Urine Colorless (Lt Yel-Yel); Glucose, Urine Negative (Negative); Ketones,Urine Negative (Negative); Leukocyte Esterase,Urine Negative (Negative); Nitrite,Urine Negative (Negative); PH,Urine 7.0 (5.0-7.0); Protein,Urine Negative (Neg - Trace); RBC,Urine < 1 /hpf (0-3); Specific Gravity,Urine 1.006 (1.001-1.035); Squamous Epithelial Cell,Urine 1 /hpf (0-5); Urobilinogen,Urine Negative mg/dL (0.0-1.0); WBC,Urine 1 /hpf (0-5)
[2025-03-10 20:31] VITALS: BP 106/62; PULSE 84; RESP 18; TEMP 36.8; O2SAT 96
--- NOTE | 2025-03-10 21:51 | PD.EDPREG ---
ED OB Contraction Preg RMI/HPI General Chief complaint: Back Pain/Injury Stated complaint: BACK PAIN; PREG 30WKS Time Seen by Provider: 03/10/25 18:21 Arrival date/time: 03/10/25 17:40 This is a case of 24-year-old female with no medical history came in in the emergency room due to lower back pain for 6 days worse today patient denies any injury or trauma denies any numbness weakness tingling sensation incontinence to urine or stool patient denies also urinary symptoms patient is a 30 weeks 2 para 1 patient have regular checkup the next scheduled will be on Tuesday patient denies any OB symptoms denies any vaginal bleeding vaginal discharge vaginal spotting denies abdominal pain flank pain nausea vomiting fever chills patient states that the baby is still moving and no contractions noted Limitations: no limitations Related Data Home Medications ?Medication ?Instructions ?Recorded ?Confirmed prenat.vits,dina,[id number] 1 tab PO QDAY 02/16/21 02/19/25 Allergies Allergy/AdvReac Type Severity Reaction Status Date / Time No Known Allergies Allergy Verified 03/10/25 17:43 Review of Systems Review of Systems Systems Reviewed: All systems reviewed, normal except as documented Constitutional Constitutional: Reports system reviewed and no additional complaints, except as documented and Reports as per HPI Cardiovascular Cardiovascular: Reports system reviewed and no additional complaints, except as documented and Reports as per HPI Respiratory Respiratory: Reports system reviewed and no additional complaints, except as documented and Reports as per HPI Gastrointestinal Gastrointestinal: Reports system reviewed and no additional complaints, except as documented and Reports as per HPI Genitourinary Genitourinary: Reports system reviewed and no additional complaints, except as documented and Reports as per HPI Musculoskeletal Musculoskeletal: Reports system reviewed and no additional complaints, except as documented and Reports as per HPI Neurologic Neurologic: Reports system reviewed and no additional complaints, except as documented and Reports as per HPI Past Medical History Past Medical History NEUROLOGIC: Negative Neurological Disorders, Cerebrovascular Accident, Transient Ischemic Attacks (TIA), Dementia, Alzheimer's Disease, Parkinson's Disease, Brain Tumor or Guillain-[place] Syndrome CARDIAC: Negative Cardiac Disorders, Myocardial Infarction, Cardiac Arrhythmia, Atrial Fibrillation, Angina or Congestive Heart Failure RESPIRATORY: Negative Chronic Obstructive Pulmonary Disease (COPD), Asthma, Bronchitis, Emphysema, Cough, Sputum Production, Wheezing, Chest Deformities, Smoking, Smoking Cessation Counseling, Smoking Exposure or Tobacco Use GASTROINTESTINAL: Negative Gastrointestinal Disorders, Liver Cancer, Hepatitis, Gall Bladder Disease, Gaming's Esophagus, Colitis or Ulcerative Colitis GENITOURINARY: Positive Genitourinary Disorders and Kidney Stones (Surgery 2016); Negative Renal Disease REPRODUCTIVE: Positive Previous Pregnancies; Negative Endometriosis, Pelvic Inflammatory Disease or Uterine Prolapse MUSCULOSKELETAL: Negative Musculoskeletal Disorders ENT: Negative Cataracts, Glaucoma, Blind, Retinal Detachment, Macular Degeneration, Ear Infection, Deafness or Eye Prosthesis ENDOCRINE: Negative Endocrine Disorders, Diabetes Mellitus Type 1 or Diabetes Mellitus Type 2 HEMATOLOGIC: Negative Blood Disorders, Anemia, Leukemia, Hemophilia or Thalassemia PSYCHO/SOCIAL: Negative Schizophrenia, Recreational Drug Use, Bipolar Disorder, Depression, Anxiety or Behavior Problems OTHER HISTORY: Positive Hospitalization (Kidney Stones 2016) and Chicken Pox (approx 5y/o); Negative Autoimmune Disease, Down Syndrome, Developmental Delay, Shingles, Falls, Blood Transfusions, Blood Transfusion Reaction, Anesthesia Reactions, Organ Transplant, Chemotherapy, Radiation Therapy, Hyperbaric Therapy, MRSA, VRSA, Vancomycin-Resistant Enterococci, Human Immunodeficiency Virus (HIV), Measles, Mumps, Rubella ([place]gu[place] Measles), Pertussis, Clostridium Difficile or Cancer Family History FAMILY HISTORY: Negative Family Psychiatric Problems, Family Respiratory Disorders, Family Cardiac Disorders, Family Gastrointestinal Problems, Family Cancer, Family Surgery or Family Anesthesia Reaction Surgical History SURGICAL: Negative Cardiac Surgery, Endocrine Surgery, Ear Surgery, Abdominal Surgery, Nephrectomy, Transurethral Resection, Joint Replacement, Neurologic Surgery, Mastectomy, Lumpectomy, Hysterectomy, Tubal Ligation, Section or Organ Transplant Social History SMOKING STATUS: Never smoker SECOND HAND EXPOSURE: No ED Exam General Limitations: Present no limitations General appearance: Present alert, in no apparent distress and other (Patient is awake alert oriented not in distress nontoxic looking well-hydrated well-nourished) Head Head exam: Present atraumatic, normocephalic and normal inspection Eye Eye exam: Present normal appearance, PERRL and EOMI ENT ENT exam: Present normal exam, normal oropharynx and mucous membranes moist Neck Neck exam: Present normal inspection, full ROM and trachea midline; Absent tenderness, meningismus or lymphadenopathy Chest Chest inspection: Present normal inspection and symmetric chest wall rise; Absent tenderness Respiratory Respiratory exam: Present normal lung sounds bilaterally; Absent respiratory distress, wheezes, stridor, accessory muscle use or prolonged expiratory phase Cardiovascular Cardiovascular exam: Present regular rate, normal rhythm and normal heart sounds; Absent bradycardia, tachycardia, irregular rhythm, systolic murmur or diastolic murmur Abdominal Exam Abdominal exam: Present soft, normal bowel sounds and other (Gravid uterus no CVA tenderness); Absent distention, tenderness, guarding, rebound, rigidity, diminished bowel sounds, hyperactive bowel sounds or hypoactive bowel sounds Extremities Exam Extremities exam: Present normal inspection and full ROM Back Exam Back exam: Present normal inspection, full ROM and tenderness (Lumbar area mild no paraspinal no paravertebral tenderness no CVA tenderness); Absent CVA tenderness (R), CVA tenderness (L), muscle spasm, paraspinal tenderness, vertebral tenderness, rashes, sciatic notch tenderness (R), sciatic notch tenderness (L), straight leg raise (R) or straight leg raise (L) Neurological Exam Neurological exam: Present alert, oriented X3, CN II-XII intact, normal gait and reflexes normal; Absent motor sensory deficit Psychiatric Psychiatric exam: Present normal affect and normal mood Skin Skin exam: Present warm, dry, intact and normal color Course Quality Measures none Orders Category Date Time Status US OB >= 14 weeks Fetus Stat Exams 03/10/25 18:31 Completed ABO/RH Type Stat Lab 03/10/25 18:44 Completed Beta HCG,Quantitative Stat Lab 03/10/25 18:44 Completed CBC Stat Lab 03/10/25 18:44 Completed CMP [Comprehensive Metabolic Panel] Stat Lab 03/10/25 18:44 Completed Urinalysis Stat Lab 03/10/25 19:13 Completed Acetaminophen Tab [Tylenol ES Tab] Med 03/10/25 18:31 Discontinued 1,000 mg PO X1 ONE Vital Signs Vital signs: Vital Signs Temperature 98.4 F 03/10/25 17:55 Pulse Rate 91 03/10/25 17:55 Respiratory Rate 18 03/10/25 17:55 Blood Pressure 121/78 03/10/25 17:55 Pulse Oximetry (%) 97 03/10/25 17:55 Oxygen Delivery Method Room Air 03/10/25 17:55 Oxygen saturation is 97% in room air OB/Uterine Contractions MDM Narrative MDM Narrative:: This is a case of 24-year-old female with no medical history came in in the emergency room due to lower back pain for 6 days worse today patient denies any injury or trauma denies any numbness weakness tingling sensation incontinence to urine or stool patient denies also urinary symptoms patient is a 30 weeks 2 para 1 patient have regular checkup the next scheduled will be on Tuesday patient denies any OB symptoms denies any vaginal bleeding vaginal discharge vaginal spotting denies abdominal pain flank pain nausea vomiting fever chills patient states that the baby is still moving and no contractions noted physical examination patient is awake alert oriented not in distress nontoxic looking abdominal exam is benign nonsurgical soft normal active bowel sounds no guarding no rebound no rigidity no tenderness gravid uterus back exam noted mild tenderness on the lumbar area but no paraspinal tenderness paravertebral tenderness leg raise exam is normal steady gait no CVA tenderness blood test showed no leukocytosis no anemia kidney and liver functions normal no electrolyte imbalance patient is positive O+ beta-hCG was [id number] urinalysis were normal unable to perform x-ray since there is no injury or trauma patient is patient was given Tylenol here in the emergency room which the pain was improved and resolved at the time of exam no signs and symptoms of cauda equina and it is not urinary tract infection this patient will be discharged home patient advised to take Tylenol for pain and continue multivitamin patient will be going upstairs OB to perform NST prior to discharge home they were advised to follow-up with PCP in 2 days for evaluation return precaution in the ER for worsening symptoms Patient was discharged with comfortable condition walking with stable gait. Patient verbalized no further complains explained diagnosis and answered patient question. Patient is comfortable with the proposed management plan including the need to follow up with his/her primary care physician and any specialist if applicable Discussed patient for any urgent condition or worsening sx, He/She needed to go to emergency room immediately or call 911. Patient acknowledge the responsibility to follow up as instructed and to monitor her/his symptoms. For any persistence of the symptoms for more than 3-5 days return precaution advised. Discussed the result of the test and was given printed discharge instruction Patient data External records reviewed:: [facility] previous records Clinical information provided by:: patient Social determinants that could affect healthcare access:: none Patient has the following chronic illnesses:: None How is presenting disease/condition affected by chronic disease/condition?: no chronic disease Evaluation data The following diagnostics were reviewed and interpreted by me:: lab results and radiology exam(s) Lab and/or radiology exams considered but not ordered:: Reviewed Interpretation Summary: Reviewed Medications / Prescriptions Medications or Prescriptions considered but not ordered:: Given Medication administrations:: Medication Administration History Discontinued Medications Acetaminophen (Acetaminophen 500 Mg Tablet) 1,000 mg PO X1 ONE Stop: 03/10/25 18:32 Last Admin: 03/10/25 18:54 Dose: 1,000 mg Documented By: SM Given Consultations Consultation(s) initiated? (list below): No Diagnosis OB Contractions Differential Diagnosis: other (Lumbar pain back muscle spasm urinary tract infection) Most likely diagnosis given after review of the tests above:: Lower back pain Admission Indicated Admission indicated?: not indicated Explain why admission is indicated or not indicated:: Not indicated Admission Request Was there a request for admission?: No Disposition Plan Disposition Plan: Discharge Discharge Attestation Discharge Attestation: The patient and all family members were given an opportunity to ask questions and understood the discharge instructions. Discharge instructions specifically effects, indications for sooner follow up or return to the emergency department, and the expected course of current diagnosis. Patient condition: Stable Discharge Plan Plan Patient Disposition: HOME (Self Care) Patient condition on transfer: Stable Prescriptions/Referrals Prescriptions/Med Rec: No Action Vitamin Tablet 1 tab PO QDAY Referrals: Matheus Palacios MD [Primary Care Provider] - In 1 week Problem List Clinical Impression: Lower back pain, Third trimester Patient/Caregiver Discharge Instructions Education Materials: Preg 3rd Trimester, ED Back Pain (Acute or Chronic) Additional Instructions: Follow-up with your primary care physician in 2 days for reevaluation it is very important to see an [facility] within 2 days for your checkup and further evaluation and treatment for any worsening symptoms or any emergent concerns such as fever chills vaginal bleeding abdominal pain baby is not moving or water broke return immediately in the emergency room or call 911 you can only take Tylenol as needed for pain ice pack and warm compress advised Print Language: Setswana Stand Alone Forms: Gill Award Info., Patient Portal Info Letter PA/ANABELA Supervising Physician EYAD/ANABELA Supervising Physician: Dr. Rodriguez
[2025-03-10 22:05] VITALS: BMI 34.3
[2025-03-10 22:12] VITALS: BP 129/75; PULSE 86; RESP 17; RESP 99; TEMP 36.8
== END 2025-03-10 23:51 | disposition home or self-care (01) ==
LOC: S4SX 23:45
PROVIDERS: Nurse Practitioner Family; Admitting Provider Specialist; PCP Family Medicine; Visit Provider Specialist
DX: O26.893 Other specified pregnancy related conditions, third trimester (principal); Z3A.30 30 weeks gestation of pregnancy; M54.50 Low back pain, unspecified
CPT/HCPCS: 36415; 59899; 76805; 80053; 81001; 84702; 85025; 86900; 86901; G0378; A9270

== ENCOUNTER 2025-03-14 14:30 | Observation (INO) | payer MEDICAID, SELFPAY ==
[2025-03-14] VITALS (40 sets, daily range): BP systolic 110–130; BP diastolic 59–71; PULSE 78–112; RESP 18–96; TEMP 36.8–36.9; O2SAT 95–99; BMI 75.0
--- NOTE | 2025-03-14 14:56 | XR_ITS ---
Examination: OB Transvaginal ultrasound of the pelvis, Limited Technique: Transvaginal sonographic images pelvis performed using gage scale imaging Exam date and time: March 14, 2025, 1524 hrs. Indications: Lower back pain pelvic pain beginning one week ago. Findings: Cervix 3.0 cm Masslike area in the cervix 2.6 x 1.5 x 1.5 cm Impression: Cervix 3.0 cm Masslike area in the cervix 2.6 x 1.5 x 1.5 cm Recommend MRI pelvis follow-up pre and postcontrast to exclude cervical mass.
[2025-03-14] MEDS: BETAMET ACET/BETAMET NA PH (Celestone) 6 MG/ML VIAL 12 MG IM (16:58)
[2025-03-14] MEDS: ACETAMINOPHEN 500 MG TABLET 1000 MG PO (19:23)
--- NOTE | 2025-03-14 20:32 | ESHP_ITS ---
Documentation for date of: 03/14/25 OB Labor/Induct. HPI History of Present Illness Chief complaint: low back pain : 2 Para: 1 Term pregnancies: 1 pregnancies: 0 Living children: 1 History of Abortions: Spontaneous and Elective: 0 History of Vaginal deliveries: 1 History of sections: No History of : No PANDA: 05/18/25 Gestational Age (weeks): 30 Gestational Age (days): 5 History of present illness: Lizzie presents for low back pain, constant x 1 week, does not resolve with tylenol, does not wax and wane. Very bothersome to her even when sitting or lying down. Prevents her from sleeping well. No issues with loss of urine or bowel function. No issues walking. No sharp/shooting pain down leg. This is second presentation for same complaint- was evaluated in ER on 03/10 with thorough workup performed and negative. This is 2nd , so she is familiar with normal back pain of . She has hx of left ureteral stenting for nephrolithiasis in the past- this pain is not similar. History of Present Dating criteria: based on 1st trimester US only Adequate Care: Yes Narrative: Hx of uncomplicated term 3 years ago, female G2: current , uncomplicated Labs Maternal Blood Type: O Pos Review of Systems Review of Systems Narrative Review of Systems: Review of Systems Systems Reviewed: All systems reviewed, normal except as documented Constitutional Constitutional: Denies body ache(s), Denies chills, Denies fever(s) and Denies headache(s) ENT Ears, Nose, Mouth, and Throat: Denies headache(s) and Denies vertigo Cardiovascular Cardiovascular: Denies chest pain, Denies palpitations, Denies dyspnea and Denies syncope Respiratory Respiratory: Denies cough, Denies dyspnea Gastrointestinal Gastrointestinal: Denies nausea and Denies vomiting Neurologic Neurologic: Denies convulsions, Denies headache(s), Denies other visual di sturbances, Denies syncope and Denies vertigo Past Medical History Family History OTHER FAMILY HX: non-contributory Surgical History SURGICAL: Negative Section OTHER SURGICAL HX: left ureteral stenting for nephrolithiasis 2015 Social History SOCIAL: No tobacco/ETOH/illicit drug use. , one child. [id number] mom Past Medical History Comments PMH COMMENT: nephrolithiasis Meds Home Medications and Allergies Home Medications ?Medication ?Instructions ?Recorded ?Confirmed ?Type prenat.vits,dina,[id number] 1 tab PO QDAY 02/16/21 02/19/25 History Allergies Allergy/AdvReac Type Severity Reaction Status Date / Time No Known Allergies Allergy Verified 03/10/25 17:43 OB Exam Physical Exam Vital signs: Temp Pulse Resp BP Pulse Ox 98.5 F 100 18 130/63 97 03/14/25 19:23 03/14/25 19:14 03/14/25 17:36 03/14/25 19:14 03/14/25 20:03 Narrative: General: well developed, well nourished, no acute distress, conversant Cardiac: normal heart rate Lungs: breathing without distress Abdomen: soft, gravid, non-tender, no rebound or guarding Extremities: no edema of BLE SSE (RN as third hand): normal external female genitalia, large closed appearing cervix with ectropion- no abnormal appearing lesion Detailed Labor and Delivery Exam Dilation (cm): 1 Effacement (%): thick station: -4 Consistency: soft Membranes: intact monitor accelerations: 15x15 monitor decelerations: None long term variability: Moderate (11-25) Contraction frequency (min): no ctx pattern OB Results Impressions Impression: Examination: OB Transvaginal ultrasound of the pelvis, Limited Technique: Transvaginal sonographic images pelvis performed using gage scale imaging Exam date and time: March 14, 2025, 1524 hrs. Indications: Lower back pain pelvic pain beginning one week ago. Findings: Cervix 3.0 cm Masslike area in the cervix 2.6 x 1.5 x 1.5 cm Impression: Cervix 3.0 cm Masslike area in the cervix 2.6 x 1.5 x 1.5 cm Recommend MRI pelvis follow-up pre and postcontrast to exclude cervical mass. ---- Examination: Complete OB ultrasound greater than 14 weeks Date and time of exam: March 10, 2025, 0727 hrs. Indications: Lower back pain pelvic pain beginning 2 days ago. Findings: Viable intrauterine single fetus with single amniotic sac presentation cephalic spine posterior Cardiac motion 152 BPM Placenta anterior grade 2 Umbilical cord insertion seen. Amniotic fluid index 9.9 cm spine posterior Cervix 2.6 cm Ovaries obscured by bowel gas. Composite estimated gestational age based on BPD, head circumference, abdominal circumference, femur length is 29 weeks 5 days Estimated weight 1362 g. Survey of intracranial anatomy, spinal anatomy, abdominal anatomy, four-chamber heart performed with no abnormalities identified. Impression: Viable intrauterine gestation cephalic presentation Placenta anterior grade 2 no abruption. OB Assessment & Plan Assessment and Plan (1) Lower back pain: Status: Acute Assessment and plan: Lizzie is a 24yo with SIUP at 30&5wk presenting with unrelenting low back pain x1 week (2nd presentation for similar complaint- had thorough ER eval on 03/10). Cervical length 3cm on TVUS today (was 2.6cm on TAUS on 03/10). Vitals wnl, benign exam. Reassuring assessment. Uncomplicated . Hx of left nephrolithiasis 2016 [facility] with Dr. Iverson Plan: -23hr observation -betamethasone 12mg IM x1 now and repeat in 24hr -CEFM x 2 hours, if Cat 1 with no ctx pattern, then NST q4hr -Regular diet -Tylenol prn back pain. If that does not relieve pain, will trial oxycodone IR 5mg PO Q6hr (hospital does not have flexeril) (2) 30 weeks gestation of : Status: Acute (1) Lower back pain Qualifiers: Back pain laterality: midline Chronicity: acute Sciatica presence: without sciatica Qualified Code(s): M54.50 - Low back pain, unspecified
[2025-03-14] MEDS: oxyCODONE HCL 5 MG IR TAB PO (22:51)
[2025-03-15] VITALS (28 sets, daily range): BP systolic 115–119; BP diastolic 63–66; PULSE 75–111; RESP 16–18; TEMP 36.7–37; O2SAT 83–100
[2025-03-15] MEDS: oxyCODONE HCL 5 MG IR TAB PO (05:26)
--- NOTE | 2025-03-15 08:49 | PD.GYNPROG ---
Documentation for date of: 03/15/25 END POLISHER Subjective Subjective Interval history: Patient doing better this morning. Back pain has improved after pain medication. No obstetric complaints at this time. Exam Vital Signs Temp Pulse Resp BP Pulse Ox O2 Del Method 98.1 F 86 17 118/64 96 Room Air 03/15/25 07:35 03/15/25 05:38 03/15/25 07:35 03/15/25 05:38 03/15/25 05:45 03/15/25 05:11 Constitutional Constitutional: no acute distress Routine HEENT Exam Head: Present normocephalic and atraumatic Eye: Present EOMI and PERRL ENT: Present mucous membranes moist Routine Neck Exam Neck: Present supple and trachea midline Routine Respiratory Exam Respiratory: Present chest non-tender, lungs clear, normal breath sounds and no resp distress Routine Cardiovascular Exam Cardiovascular: Present RRR Routine Abdominal Exam Abdominal: Present soft and normoactive bowel sounds Routine Extremities Exam Extremities: Present full ROM Routine Skin Exam Skin: Present intact and dry Routine Neurological Exam Neurological: Present alert, oriented X3 and CN II-XII intact Routine Psychiatric Exam Psychiatric: Present normal affect and normal thought process Urinary Catheter Management Cath placed during this visit: no END POLISHER - A/P Assessment and plan (1) Lower back pain: Status: Acute Assessment and plan: Patient admitted overnight for management of back pain and third trimester Plan to discharge home today on oral pain medications Follow-up in the office within 7 days (2) 30 weeks gestation of : Status: Acute Time Spent With Patient Time: Total time spent is greater than 50% in coordination of care (as documented) at patient's floor/unit and/or counseling patient: Time with patient: less than 15 minutes
== END 2025-03-15 09:45 | disposition home or self-care (01) ==
PROVIDERS: Admitting Provider Obstetrics & Gynecology; Visit Provider Obstetrics & Gynecology
DX: O26.893 Other specified pregnancy related conditions, third trimester (principal); Z3A.30 30 weeks gestation of pregnancy; M54.50 Low back pain, unspecified
CPT/HCPCS: 59025; 59899; 76817; 96372; J0702; A9270

== ENCOUNTER 2025-03-15 16:17 | Outpatient (CLI) | payer MEDICAID, SELFPAY ==
[2025-03-15 16:19] VITALS: BP 120/66; PULSE 99
[2025-03-15 16:25] VITALS: BP 120/66; PULSE 98; RESP 16; RESP 99; TEMP 36.8; BMI 33.4
[2025-03-15] MEDS: BETAMET ACET/BETAMET NA PH (Celestone) 6 MG/ML VIAL 12 MG IM (17:05)
== END 2025-03-15 17:48 | disposition home or self-care (01) ==
LOC: S4S1 16:18 → S4SX 16:19
PROVIDERS: Referring Provider Obstetrics & Gynecology; Visit Provider Obstetrics & Gynecology
DX: Z34.83 Encounter for supervision of other normal pregnancy, third trimester (principal); Z3A.30 30 weeks gestation of pregnancy
CPT/HCPCS: 96372; J0702

== ENCOUNTER 2025-03-20 10:30 | Outpatient (AMB) | payer MEDICAID, SELFPAY ==
[2025-03-20 10:57] VITALS: BP 110/57; PULSE 118; RESP 16; TEMP 36.2; O2SAT 97; BMI 33.7
--- NOTE | 2025-03-20 10:57 | OBCLNT_ITS ---
Vital Signs 03/20/25 10:57 Height 1.52 m Height Method Stated Weight 78.075 kg Weight Measurement Method Standing Scale BMI 33.7 BP 110/57 L Blood Pressure Source Automatic Cuff Blood Pressure Location Left Upper Arm Position Sitting Respiration 16 Pulse 118 H Pulse Source Monitor Temp 97.2 F Temp Source Oral Pulse Oximetry (%) 97 Oxygen Delivery Method Room Air Allergies/Home Meds Allergies & Medications Allergies No Known Allergies Allergy (Verified 04/25/25 14:39) Medication Reconciliation prenat.vits,dina,vyx-gsts-lifct 1 tab PO QDAY 02/16/21 [History Confirmed 04/25/25] Intake Visit Data Collection New Patient or Established: Established Patient (seen at [facility] within 3 years) Reason for Visit:: OBC Seen by Clinical Staff ONLY (RN/MA): No 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 1. Little interest or pleasure in doing things: not at all 2. Feeling down, depressed, or hopeless: not at all Total score: 0 PHQ-9 3. Trouble falling or staying asleep, or sleeping too much: Not at all 4. Feeling tired or having little energy: Not at all 5. Poor appetite or overeating: Not at all 6. Feeling bad about yourself - or that you are a failure or have let yourself or your family down: Not at all 7. Trouble concentrating on things, such as reading the newspaper or watching television: Not at all 8. Moving or speaking so slowly that other people could have noticed? - Or the opposite - being so fidgety or restless that you have been moving around a lot more than usual: not at all 9. Thoughts that you would be better off or of hurting yourself in some wa y: Not at all Total score: 0 If you checked off any problems, how difficult have these problems made it for you to do your work, take care of things at home, or get along with other people?: not difficult at all Source: Developed by Drs. Luc Haji, Lacey Marion, Con Tejeda and colleagues, with an educational christa from [employer]. 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 History Past Medical History: No Hx Neurological Disorders, No Hx Cardiac Disorders, No Hx Cancer, No Hx Blood Disorders, No Hx Anemia, No Hx Gastrointestinal Disorders, No Hx Renal Disease, No Hx Diabetes Mellitus Type 1, No Hx Diabetes Mellitus Type 2, No Hx Tubal Ligation and No Hx Hysterectomy Care OB Visit Log OB Flowsheet Initial Weight: Not Recorded Date -?-?-?-?-?-?-?-?-?-?-?-?- EGA Weight BP Alb Glu CTX Pres Fundal ht FHR Mov Dilation Station Effacement Hx Notes Visit Note 10/30/24 -?-?-?-?-?-?-?-?--?-?-?-?- 11w 4d 76.374 kg 128/77 145 Laboratory, Imaging, and Diagnostic Test Results - labs: - Hepatitis B: Negative - Hepatitis C: Negative - RPR: Non-reactive - Rubella: Non-immune - ABO blood type: O - Rh factor: Positive - Antibody screen: Negative - HIV: Negative - Gonorrhea: Negative - Chlamydia: Negative - CBC: - Hemoglobin: 13.2 g/dL - Platelets: 269 - Maternity 21 genome testing: - Negative screening for trisomies and commonly tested genetic mutations - gender: Female - Ultrasound: - Gestational age: 13 weeks and 4 days . Plan: - Estimated due date (PANDA) tentatively s et as April 19, pending confirmation at anatomy ultrasound - Referral to [facility] for 20-week anatomy ultrasound - Office staff to schedule appointment and obtain insurance approval - Follow-up appointment in one month - Await specialist ultrasound to confirm gestational age and PANDA 11/27/24 -?-?-?-?-?-?-?-?-?-?-?-?- 15w 4d 74.956 kg 124/77 at 19 weeks and 4 days gestation, pres ents for routine care. Reports feeling well with active FM+, mild back pain considered normal. Denies nausea, vomiting, or cramping. labs completed; awaiting MFM anatomy ultrasound. Needs vitamin refill. FHT 163 bpm. Plan: Refill vitamins ([facility]) Lab slip for glucose screen Reminder for MFM anatomy scan Follow-up in 2 weeks precautions 12/25/24 -?-?-?-?-?-?-?-?-?-?-?-?- 19w 4d 75.807 kg 113/73 at 23w4d with PANDA 04/19/25 presents for routine care. Reports good FM, no CTX/LOF/VB. Denies GUADALUPE/VC/epigastric pain. One-hour GTT was 125 mg/dL (normal). Patient states MFM ultrasound was scheduled but she hasn?t been contacted. Concerned about position, but this is normal for gestational age. No new complaints. Plan: Will call [facility]?s to gurmeet jarvis MFM appointment status. Patient to complete anatomy scan at [facility]. Continue routine care. Review results when available. Reinforce FM monitoring, preeclampsia precautions, and safety planning for third trimester. Follow up in 4 weeks. 01/22/25 -?-?-?-?-?-?-?-?-?-?-?-?- 23w 4d 76.204 kg 116/72 absent cephalic 28 145 active No CTX/LOF/VB, good FM. FHR 155. On insulin for GDM, reports improved sugars after recent dose adjustment. Injection sites minimally bruised. Awaiting call for twice weekly NSTs. Plan: Continue i nsulin, order CBC/RPR, follow up in 1 week to review glucose log. Aim for delivery at 38w if well-controlled, 37w if not. 02/19/25 -?-?-?-?-?-?-?-?-?-?-?-?- 27w 4d 76.884 kg 120/68 absent cephalic 28 active - Patient reports: - No contractions - Active movement - Denies any new symptoms or concerns - Follow-up appointment scheduled in 2 weeks - Ultrasound scheduled for March 14 at 34 weeks gestation to examine spine - Additional labs to check for anemia pl anned around 34 weeks gestation 03/20/25 -?-?-?-?-?-?-?-?-?-?-?-?- 31w 5d 78.075 kg 110/57 absent cephalic 32 155 active - She was previously admitted to antepartum service for right flank pain attributed to kidney stones and [place] Haro contractions. - Patient reports she is doing well over all. - Regarding her previous flank pain, she continues to experience some discomfort. - She denies current contractions. - Last visit was at 33 weeks and 3 days gestation. - Weekly appointments from now onwards - GBS swab performed - Follow-up ultrasound in 1 week - Cervical check for dilation at 38-39 w eeks 04/01/25 -?-?-?-?-?-?-?-?-?-?-?-?- 33w 3d 79.605 kg 112/67 absent cephalic 34 154 active No contractions, LOF, VB and reports good FM. Patient reports flank pain. Denies GUADALUPE, V C, and epigastric pain. Flank pain - Ongoing, attributed to kidney stone and matthew haro contractions - Recent ED visit to Labor and Deliver y for evaluation - Kidney ultrasound and urinalysis p erformed, results reported as normal - Patient reports pain is still present and unchanged - No reported changes in overall health status or new symptoms Plan - Follow up in 2 weeks - Attend scheduled ultrasound on er - Group B strep culture swab due at next appointment (35-36 weeks) PANDA Calculator Estimated Delivery Date Method Current WG Current Estimate 05/17/25 Ultrasound #1 37w 1d Other Estimates 04/19/25 LMP (Certain) 41w 1d 05/18/25 Ultrasound #2 37w 0d 05/17/25 Manual 37w 1d final panda . efw: 22% Notes Visit Date: 03/20/25 Last Updated by: Evert Iverson MD Problem List - , 35 weeks and 5 days - Kidney stones - [place] Haro contractions - Right flank pain Visit Date: 02/19/25 Last Updated by: Evert Iverson MD - Date: TueFeb 19 2025 - CBC: Hemoglobin 12.31 g/dL - Glucose: 125 mg/dL Assessment & Plan Diagnosis / Problem List (1) Third trimester : Status: Acute (2) 30 weeks gestation of : Status: Acute Plan Problem List - , 35 weeks and 5 days - Kidney stones - [place] Haro contractions - Right flank pain Assessment at 35 weeks and 5 days gestation, presenting for routine visit. Patient previously admitted to antepartum service for right flank pain, attributed to kidney stones and [place] Har[place] contractions. Recent ultrasound at 33 weeks showed estimated weight of 2064 grams (4 pounds, 9 ounces), 22nd percentile, with normal anatomy and cephalic presentation. heart rate auscultated at 155 bpm, within normal limits. Patient reports persistent flank pain, likely due to pressure on kidneys. Group B Streptococcus (GBS) screening performed during visit. Plan - Weekly appointments from now onwards - GBS swab performed - Follow-up ultrasound in 1 week - Cervical check for dilation at 38-39 weeks 1. Progress Reviewed gestational age (35 weeks 5 days), growth (estimated weight 2064 grams, 4 pounds 9 ounces, 22nd percentile), and heart rate (155 bpm normal). Planned frequent visits (weekly from now onwards). 2. Instructed patient to monitor movements and report decreases immediately. 3. Testing Counseled on routine third-trimester labs per guidelines (GBS testing performed). Discussed potential need for ultrasound or monitoring based on risk factors. 4. Preeclampsia Precaution Educated on preeclampsia signs: severe headache, vision changes, right upper quadrant pain, sudden swelling. Advised urgent reporting of symptoms and discussed blood pressure monitoring if high risk. 5. Labor Precautions Reviewed labor signs: regular contractions, pelvic pressure, back pain, bleeding, or fluid leakage. Instructed to seek immediate care for these symptoms. 6. Lifestyle and Delivery Preparation Reinforced vitamins, nutrition, and safe activity. Discussed plan, pain management, and . Advised on labor preparation (e.g., hospital bag) and expectations. 7. Psychosocial Support Assessed emotional well-being and offered resources for mental health or parenting support.
== END 2025-03-20 11:09 | disposition home or self-care (01) ==
LOC: HODSOBC 10:30
PROVIDERS: Supervising Provider Obstetrics & Gynecology; Visit Provider Obstetrics & Gynecology
DX: O09.893 Supervision of other high risk pregnancies, third trimester (principal); O47.03 False labor before 37 completed weeks of gestation, third trimester; O99.891 Other specified diseases and conditions complicating pregnancy; N20.0 Calculus of kidney; Z3A.31 31 weeks gestation of pregnancy; Z36.85 Encounter for antenatal screening for Streptococcus B
CPT/HCPCS: 99213; G0463

== ENCOUNTER 2025-03-20 11:51 | Observation (INO) | payer MEDICAID, SELFPAY ==
[2025-03-20 11:55] VITALS: BP 122/56; PULSE 77; RESP 16; RESP 98; TEMP 36.9; BMI 33.6
--- NOTE | 2025-03-20 12:00 | XR_ITS ---
Examination: Retroperitoneal ultrasound, complete Technique: Multiple high resolution grayscale images of the retroperitoneum obtained, including kidneys and bladder. Exam date and time:March 20, 2025, 1229 hours INDICATIONS: Right flank pain beginning 2 weeks ago, 31 week by history. FINDINGS: Right kidney 11.3 cm cortex 1.7 cm Minimal hydronephrosis. Left kidney 11.1 cm cortex 1.7 cm No bladder mass or bladder calculi Bladder prevoid volume 209 cc IMPRESSION: Minimal right hydronephrosis
[2025-03-20 12:55] VITALS: BP 112/70; PULSE 82
[2025-03-20 13:48] LABS: Collection Type, Urine Clean Catch; RBC,Urine 0 /hpf (0-3); WBC,Urine 0 /hpf (0-5)
[2025-03-20 14:42] LABS: Bacteria,Urine Rare; Bilirubin,Urine Negative (Negative); Blood,Urine Negative (Negative); Clarity,Urine Clear (Clear/Hazy); Color,Urine Colorless (Lt Yel-Yel); Glucose, Urine Negative (Negative); Ketones,Urine Negative (Negative); Leukocyte Esterase,Urine Negative (Negative); Nitrite,Urine Negative (Negative); PH,Urine 7.0 (5.0-7.0); Protein,Urine Negative (Neg - Trace); Specific Gravity,Urine 1.005 (1.001-1.035); Squamous Epithelial Cell,Urine 1 /hpf (0-5); Urobilinogen,Urine Negative mg/dL (0.0-1.0)
== END 2025-03-20 15:10 | disposition home or self-care (01) ==
PROVIDERS: Admitting Provider Obstetrics & Gynecology; Visit Provider Obstetrics & Gynecology
DX: O26.833 Pregnancy related renal disease, third trimester (principal); N13.30 Unspecified hydronephrosis; O46.93 Antepartum hemorrhage, unspecified, third trimester; Z3A.31 31 weeks gestation of pregnancy
CPT/HCPCS: 59025; 59899; 76770; 81001

== ENCOUNTER 2025-04-01 12:54 | Outpatient (AMB) | payer MEDICAID, SELFPAY ==
--- NOTE | 2025-04-01 13:15 | OBCLNT_ITS ---
Vital Signs 04/01/25 13:16 Height 1.52 m Height Method Stated Weight 79.605 kg Weight Measurement Method Standing Scale BMI 34.4 BP 112/67 Blood Pressure Source Automatic Cuff Blood Pressure Location Left Upper Arm Position Sitting Respiration 14 Pulse 63 Pulse Source Monitor Temp 97.6 F Temp Source Oral Pulse Oximetry (%) 97 Oxygen Delivery Method Room Air Allergies/Home Meds Allergies & Medications Allergies No Known Allergies Allergy (Verified 04/01/25 13:19) Medication Reconciliation prenat.vits,dina,piv-ursh-wcwdj 1 tab PO QDAY 02/16/21 [History Confirmed 04/01/25] Intake Visit Data Collection New Patient or Established: Established Patient (seen at [facility] within 3 years) Reason for Visit:: CARE Seen by Clinical Staff ONLY (RN/MA): No Collateral Specialist Required: No Do You Feel Safe at Home: Yes Authorities Contacted: N/A PCP or OBGYN visit in last 3 months: Yes Hx Now: Yes Are you currently on any form of Control: No Pain Present Currently: No Pain Scale Used: Harding-Bradford/Numerical Pain scale:: 0 Smoking Status Smoking Status: Never smoker Questionnaires Covid-19 Vaccine Questionnaire Has patient been vacinated for Covid-19 Have you been vacinated for Covid-19: Yes PHQ-9 PHQ-2 Over the last 2 weeks, how often have you been bothered by any of the following problems? 1. Little interest or pleasure in doing things: not at all 2. Feeling down, depressed, or hopeless: not at all Total score: 0 PHQ-9 3. Trouble falling or staying asleep, or sleeping too much: Not at all 4. Feeling tired or having little energy: Not at all 5. Poor appetite or overeating: Not at all 6. Feeling bad about yourself - or that you are a failure or have let yourself or your family down: Not at all 7. Trouble concentrating on things, such as reading the newspaper or watching television: Not at all 8. Moving or speaking so slowly that other people could have noticed? - Or the opposite - being so fidgety or restless that you have been moving around a lot more than usual: not at all 9. Thoughts that you would be better off or of hurting yourself in some way: Not at all Total score: 0 Source: Developed by Drs. Luc Hjai, Lacey Marion, Con Tejeda and colleagues, with an educational christa from [employer]. 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 History Past Medical History: No Hx Neurological Disorders, No Hx Cardiac Disorders, No Hx Cancer, No Hx Blood Disorders, No Hx Anemia, No Hx Gastrointestinal Disorders, No Hx Renal Disease, No Hx Diabetes Mellitus Type 1, No Hx Diabetes Mellitus Type 2, No Hx Tubal Ligation and No Hx Hysterectomy Care OB Visit Log OB Flowsheet Initial Weight: Not Recorded Date -?-?-?-?-?-?-?-?-?-?-?-?- EGA Weight BP Alb Glu CTX Pres Fundal ht FHR Mov Dilation Station Effacement Hx Notes Visit Note 10/30/24 -?-?-?-?-?-?-?-?-?-?-?-?- 11w 4d 76.374 kg 128/77 145 Laboratory, Imaging, and Diagnostic Test Results - labs: - Hepatitis B: Negative - Hepatitis C: Negative - RPR: Non-reactive - Rubella: Non-immune - ABO blood type: O - Rh factor: Positive - Antibody screen: Negative - HIV: Negative - Gonorrhea: Negative - Chlamydia: Negative - CBC: - Hemoglobin: 13.2 g/dL - Platelets: 269 - Maternity 21 genome testing: - Negative screening for trisomies and commonly tested genetic mutations - gender: Female - Ultrasound: - Gestational age: 13 weeks and 4 days . Plan: - Estimated due date (PANDA) tentatively s et as April 19, pending confirmation at anatomy ultrasound - Referral to [facility] in [place] for 20-week anatomy ultrasound - Office staff to schedule appointment and obtain insurance approval - Follow-up appointment in one month - Await specialist ultrasound to confirm gestational age and PANDA 11/27/24 -?-?-?-?-?-?-?-?-?-?-?-?- 15w 4d 74.956 kg 124/77 at 19 weeks and 4 days gestation, presents for routine care. Reports feeling well with active FM+, mild back pain considered normal. Denies nausea, vomiting, or cramping. labs completed; awaiting MFM anatomy ultrasound. Needs vitamin refill. FHT 163 bpm. Plan: Refill vitamins ([facility]) Lab slip for glucose screen Reminder for MFM anatomy scan Follow-up in 2 weeks precautions 12/25/24 -?-?-?-?-?-?-?-?-?-?-?-?- 19w 4d 75.807 kg 113/73 at 23w4d with PANDA 04/19/25 presents for routine care. Reports good FM, no CTX/LOF/VB. Denies GUADALUPE/VC/epigastric pain. One-hour GTT was 125 mg/dL (normal). Patient states MFM ultrasound was scheduled but she hasn?t been contacted. Concerned about position, but this is normal for gestational age. No new complaints. Plan: Will call [facility] to gurmeet jarvis MFM appointment status. Patient to complete anatomy scan at [facility]. Continue routine care. Review results when available. Reinforce FM monitoring, preeclampsia precautions, and safety planning for third trimester. Follow up in 4 weeks. 01/22/25 -?-?-?-?-?-?-?-?-?-?-?-?- 23w 4d 76.204 kg 116/72 absent cephalic 28 145 active No CTX/LOF/VB, good FM. FHR 155. On insulin for GDM, reports improved sugars after recent dose adjustment. Injection sites minimally bruised. Awaiting call for twice weekly NSTs. Plan: Continue i nsulin, order CBC/RPR, follow up in 1 week to review glucose log. Aim for delivery at 38w if well-controlled, 37w if not. 02/19/25 -?-?-?-?-?-?-?-?-?-?-?-?- 27w 4d 76.884 kg 120/68 absent cephalic 28 active - Patient reports: - No contractions - Active movement - Denies any new symptoms or concerns - Follow-up appointment scheduled in 2 weeks - Ultrasound scheduled for March 14 at 34 weeks gestation to examine spine - Additional labs to check for anemia pl anned around 34 weeks gestation 04/01/25 -?-?-?-?-?-?-?-?-?-?-?-?- 33w 3d 79.605 kg 112/67 absent cephalic 34 154 active No contractions, LOF, VB and reports good FM. Patient reports flank pain. Denies GUADALUPE, V C, and epigastric pain. Flank pain - Ongoing, attributed to kidney stone and matthew haro contractions - Recent ED visit to Labor and Deliver y for evaluation - Kidney ultrasound and urinalysis p erformed, results reported as normal - Patient reports pain is still present and unchanged - No reported changes in overall health status or new symptoms Plan - Follow up in 2 weeks - Attend scheduled ultrasound on - Group B strep culture swab due at next appointment (35-36 weeks) PANDA Calculator Estimated Delivery Date Method Current WG Current Estimate 05/17/25 Ultrasound #1 33w 4d Other Estimates 04/19/25 LMP (Certain) 37w 4d Notes Visit Date: 02/19/25 Last Updated by: Evert Iverson MD - Date: TueFeb 19 2025 - CBC: Hemoglobin 12.31 g/dL - Glucose: 125 mg/dL Assessment & Plan Diagnosis / Problem List (1) 30 weeks gestation of : Status: Acute (2) Third trimester : Status: Acute (3) Lower back pain: Status: Acute Qualifiers: Chronicity: acute Back pain laterality: midline Sciatica presence: without sciatica Qualified Code(s): M54.50 - Low back pain, unspecified (4) Supervision of high risk , unspecified, third trimester: Status: Acute Plan Problem List - , 33 weeks and 3 days - Flank pain - Kidney stone - [place] Haro contractions Assessment at 33 weeks and 3 days gestation presenting for routine visit. Patient reports ongoing flank pain, likely due to kidney stones and matthew haro contractions. Recent evaluation at Labor and Delivery included kidney ultrasound and urinalysis, which were reported as normal. heart rate noted to be 154 bpm, which is within normal range. The persistent flank pain is assessed to be related to uterine pressure on the ureter, potentially causing impaired urine drainage. Plan - Follow up in 2 weeks - Attend scheduled ultrasound on April 03 - Group B strep culture swab due at next appointment (35-36 weeks) 1. Progress Reviewed gestational age (33 weeks and 3 days), growth, and heart rate (154, normal). Planned frequent visits (every 2 weeks until 36 weeks, then weekly). 2. Instructed patient to monitor movements and report decreases immediately. 3. Testing Counseled on routine third-trimester labs per guidelines. Discussed potential need for ultrasound or monitoring based on risk factors. 4. Preeclampsia Precaution Educated on preeclampsia signs: severe headache, vision changes, right upper quadrant pain, sudden swelling. Advised urgent reporting of symptoms and discussed blood pressure monitoring if high risk. 5. Labor Precautions Reviewed labor signs: regular contractions, pelvic pressure, back pain, bleeding, or fluid leakage. Instructed to seek immediate care for these symptoms. 6. Lifestyle and Delivery Preparation Reinforced vitamins, nutrition, and safe activity. Discussed plan, pain management, and . Advised on labor preparation (e.g., hospital bag) and expectations. 7. Psychosocial Support Assessed emotional well-being and offered resources for mental health or parenting support.
[2025-04-01 13:16] VITALS: BP 112/67; PULSE 63; RESP 14; TEMP 36.4; O2SAT 97; BMI 34.4
== END 2025-04-01 13:39 | disposition home or self-care (01) ==
PROVIDERS: Supervising Provider Obstetrics & Gynecology; Visit Provider Obstetrics & Gynecology
DX: O09.893 Supervision of other high risk pregnancies, third trimester (principal); O47.03 False labor before 37 completed weeks of gestation, third trimester; O99.891 Other specified diseases and conditions complicating pregnancy; N20.0 Calculus of kidney; Z3A.33 33 weeks gestation of pregnancy
CPT/HCPCS: 99214; G0463

== ENCOUNTER 2025-04-17 08:59 | Outpatient (AMB) | payer MEDICAID, SELFPAY ==
--- NOTE | 2025-04-17 09:22 | OBCLNT_ITS ---
Vital Signs 04/17/25 09:27 Height 1.52 m Height Method Stated Weight 80.484 kg Weight Measurement Method Standing Scale BMI 34.8 BP 119/74 Blood Pressure Source Automatic Cuff Blood Pressure Location Left Upper Arm Position Sitting Respiration 16 Pulse 77 Pulse Source Monitor Temp 97.5 F Temp Source Temporal Artery Scan Pulse Oximetry (%) 97 Oxygen Delivery Method Room Air Allergies/Home Meds Allergies & Medications Allergies No Known Allergies Allergy (Verified 05/14/25 10:03) Medication Reconciliation prenat.vits,dina,[id number] 1 tab PO QDAY 02/16/21 [History Confirmed 05/14] Intake Visit Data Collection New Patient or Established: Established Patient (seen at [facility] within 3 years) Reason for Visit:: OBC/GBS Seen by Clinical Staff ONLY (RN/MA): No Diabetes Physician Required: No Do You Feel Safe at Home: Yes Authorities Contacted: N/A PCP or OBGYN visit in last 3 months: Yes Date of Last PCP or OBGYN visit: 03/20/25 Hx Now: Yes Are you currently on any form of Control: No Pain Present Currently: No Pain Scale Used: Harding-Bradford/Numerical Pain scale:: 0 Smoking Status Smoking Status: Never smoker Questionnaires Covid-19 Vaccine Questionnaire Has patient been vacinated for Covid-19 Have you been vacinated for Covid-19: Yes PHQ-9 PHQ-2 Over the last 2 weeks, how often have you been bothered by any of the following problems? 1. Little interest or pleasure in doing things: not at all 2. Feeling down, depressed, or hopeless: not at all Total score: 0 PHQ-9 3. Trouble falling or staying asleep, or sleeping too much: Not at all 4. Feeling tired or having little energy: Not at all 5. Poor appetite or overeating: Not at all 6. Feeling bad about yourself - or that you are a failure or have let yourself or your family down: Not at all 7. Trouble concentrating on things, such as reading the newspaper or watching television: Not at all 8. Moving or speaking so slowly that other people could have noticed? - Or the opposite - being so fidgety or restless that you have been moving around a lot more than usual: not at all 9. Thoughts that you would be better off or of hurting yourself in some way: Not at all Total score: 0 If you checked off any problems, how difficult have these problems made it for you to do your work, take care of things at home, or get along with other people?: not difficult at all Source: Developed by Drs. Luc Haji, Lacey Marion, Con Tejeda and colleagues, with an educational christa from [employer]. 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: Past Medical History Past Medical History: No Hx Neurological Disorders, No Hx Cardiac Disorders, No Hx Cancer, No Hx Blood Disorders, No Hx Anemia, No Hx Gastrointestinal Disorders, No Hx Renal Disease, No Hx Diabetes Mellitus Type 1, No Hx Diabetes Mellitus Type 2, No Hx Tubal Ligation and No Hx Hysterectomy Care OB Visit Log OB Flowsheet Initial Weight: Not Recorded Date -?-?-?-?-?-?-?-?-?-?-?-?- EGA Weight BP Alb Glu CTX Pres Fundal ht FHR Mov Dilation Station Effacement Hx Notes Visit Note 10/30/24 -?-?-?-?-?-?-?-?-?-?-?-?- 11w 4d 76.374 kg 128/77 145 Laboratory, Imaging, and Diagnostic Test Results - labs: - Hepatitis B: Negative - Hepatitis C: Negative - RPR: Non-reactive - Rubella: Non-immune - ABO blood type: O - Rh factor: Positive - Antibody screen: Negative - HIV: Negative - Gonorrhea: Negative - Chlamydia: Negative - CBC: - Hemoglobin: 13.2 g/dL - Platelets: 269 - Maternity 21 genome testing: - Negative screening for trisomies and commonly tested genetic mutations - gender: Female - Ultrasound: - Gestational age: 13 weeks and 4 days . Plan: - Estimated due date (PANDA) tentatively s et as April 19, pending confirmation at anatomy ultrasound - Referral to [facility] for 20-week anatomy ultrasound - Office staff to schedule appointment and obtain insurance approval - Follow-up appointment in one month - Await specialist ultrasound to confirm gestational age and PANDA 11/27/24 -?-?-?-?-?-?-?-?-?-?-?-?- 15w 4d 74.956 kg 124/77 at 19 weeks and 4 days gestation, presents for routine care. Reports feeling well with active FM+, mild back pain considered normal. Denies nausea, vomiting, or cramping. labs completed; awaiting MFM anatomy ultrasound. Needs vitamin refill. FHT 163 bpm. Plan: Refill vitamins ([facility]) Lab slip for glucose screen Reminder for MFM anatomy scan Follow-up in 2 weeks precautions 12/25/24 -?-?-?-?-?-?-?-?-?-?-?-?- 19w 4d 75.807 kg 113/73 at 23w4d with PANDA 04/19/25 presents for routine care. Reports good FM, no CTX/LOF/VB. Denies GUADALUPE/VC/epigastric pain. One-hour GTT was 125 mg/dL (normal). Patient states MFM ultrasound was scheduled but she hasn?t been contacted. Concerned about position, but this is normal for gestational age. No new complaints. Plan: Will call [facility]?s to gurmeet jarvis MFM appointment status. Patient to complete anatomy scan at [facility]. Continue routine care. Review results when available. Reinforce FM monitoring, preeclampsia precautions, and safety planning for third trimester. Follow up in 4 weeks. 01/22/25 -?-?-?-?-?-?-?-?-?--?-?-?- 23w 4d 76.204 kg 116/72 absent cephalic 28 145 active No CTX/LOF/VB, good FM. FHR 155. On insulin for GDM, reports improved sugars after recent dose adjustment. Injection sites minimally bruised. Awaiting call for twice weekly NSTs. Plan: Continue i nsulin, order CBC/RPR, follow up in 1 week to review glucose log. Aim for delivery at 38w if well-controlled, 37w if not. 02/19/25 -?-?-?-?-?-?-?-?-?-?-?-?- 27w 4d 76.884 kg 120/68 absent cephalic 28 active - Patient reports: - No contractions - Active movement - Denies any new symptoms or concerns - Follow-up appointment scheduled in 2 weeks - Ultrasound scheduled for March 14 at 34 weeks gestation to examine spine - Additional labs to check for anemia pl anned around 34 weeks gestation 03/20/25 -?-?-?-?-?-?-?-?-?-?-?-?- 31w 5d 78.075 kg 110/57 absent cephalic 32 155 active - She was previously admitted to antepartum service for right flank pain attributed to kidney stones and [place] Haro contractions. - Patient reports she is doing well over all. - Regarding her previous flank pain, she continues to experience some discomfort. - She denies current contractions. - Last visit was at 33 weeks and 3 days gestation. - Weekly appointments from now onwards - GBS swab performed - Follow-up ultrasound in 1 week - Cervical check for dilation at 38-39 w eeks 04/01/25 -?-?-?-?-?-?-?-?-?-?-?-?- 33w 3d 79.605 kg 112/67 absent cephalic 34 154 active No contractions, LOF, VB and reports good FM. Patient reports flank pain. Denies GUADALUPE, V C, and epigastric pain. Flank pain - Ongoing, attributed to kidney stone and matthew haro contractions - Recent ED visit to Labor and Deliver y for evaluation - Kidney ultrasound and urinalysis p erformed, results reported as normal - Patient reports pain is still present and unchanged - No reported changes in overall health status or new symptoms Plan - Follow up in 2 weeks - Attend scheduled ultrasound on er - Group B strep culture swab due at next appointment (35-36 weeks) 04/17/25 -?-?-?-?-?-?-?-?-?-?-?-?- 35w 5d 80.484 kg 119/74 absent cephalic 36 145 active - She was previously admitted to antepartum service for right flank pain attributed to kidney stones and [place] Har[place] contractions. - Patient reports she is doing well over all. - Regarding her previous flank pain, she continues to experience some discomfort. - She denies current contractions. - Weekly appointments from now onwards - GBS swab performed - Follow-up ultrasound in 1 week - Cervical check for dilation at 38-39 w eeks 05/02/25 -?-?-?-?-?-?-?-?-?-?-?-?- 37w 6d 80.739 kg 121/76 absent cephalic 35 145 active - She reports feeling pressure, which she describes as normal at this gestational age. - Baby remains active with movements fel t primarily in the upper abdomen. - She has prepared for delivery with hos pital bag packed. - She denies wanting shots or injections. - Return visit next week at 39 weeks for cervical examination and membrane sweeping - Check for cervical dilation at next vi sit 05/14/25 -?-?-?-?-?-?-?-?-?-?-?-?- 39w 4d 81.76 kg 117/71 absent cephalic 39 155 active No contractions, LOF, VB and reports good FM. Denies GUADALUPE, VC, and epigastric pain. - Induction of labor scheduled for 05/19 at 40+2/7 weeks gestation due to post-dates - Patient to call labor and delivery uni t at 8 am on 05/19 for admission time - Induction protocol to include cervical ripening agents followed by IV oxytocin - GBS negative, obtained and faxed prior to admission PANDA Calculator Estimated Delivery Date Method Current WG Current Estimate 05/17/25 Ultrasound #1 39w 4d Other Estimates 04/19/25 LMP (Certain) 43w 4d 05/18/25 Ultrasound #2 39w 3d 05/17/25 Manual 39w 4d final panda . efw: 22% Notes Visit Date: 03/20/25 Last Updated by: Evert Iverson MD Problem List - , 35 weeks and 5 days - Kidney stones - [place] Har[place] contractions - Right flank pain Visit Date: 02/19/25 Last Updated by: Evert Iverson MD - Date: TueFeb 19 2025 - CBC: Hemoglobin 12.31 g/dL - Glucose: 125 mg/dL Office Procedures OBC Clinic LOC & Office Proc's Nursing/Assessment Patient Status: Established Patient OB Clinic Nursing Assessment: Medication Reconciliation, Update PMH in EMR and Vital Signs OB Clinic Coordination of Care: Education Complex Pt/Fam, Consent,records obtained, informed consent, Lab and Imaging orders, Results/Orders obtained and Staff clarify orders Special Needs: Heart tones Miscellaneous Interventions: Pelvic Comp w/OB cult Established Patient Charge Established Patient Point Assignment: 130 Established Patient Point Charge: EP Level 4 (120-155) Assessment & Plan Diagnosis / Problem List (1) 30 weeks gestation of : Status: Acute (2) Third trimester : Status: Acute Plan Problem List - , 35 weeks and 5 days - Kidney stones - [place] Haro contractions - Right flank pain Assessment at 35 weeks and 5 days gestation, presenting for routine visit. Patient previously admitted to antepartum service for right flank pain, attributed to kidney stones and [place] Haro contractions. Recent ultrasound at 33 weeks showed estimated weight of 2064 grams (4 pounds, 9 ounces), 22nd percentile, with normal anatomy and cephalic presentation. heart rate auscultated at 155 bpm, within normal limits. Patient reports persistent flank pain, likely due to pressure on kidneys. Group B Streptococcus (GBS) screening performed during visit. Plan - Weekly appointments from now onwards - GBS swab performed - Follow-up ultrasound in 1 week - Cervical check for dilation at 38-39 weeks 1. Progress Reviewed gestational age (35 weeks 5 days), growth (estimated weight 2064 grams, 4 pounds 9 ounces, 22nd percentile), and heart rate (155 bpm normal). Planned frequent visits (weekly from now onwards). 2. Instructed patient to monitor movements and report decreases immediately. 3. Testing Counseled on routine third-trimester labs per guidelines (GBS testing performed). Discussed potential need for ultrasound or monitoring based on risk factors. 4. Preeclampsia Precaution Educated on preeclampsia signs: severe headache, vision changes, right upper quadrant pain, sudden swelling. Advised urgent reporting of symptoms and discussed blood pressure monitoring if high risk. 5. Labor Precautions Reviewed labor signs: regular contractions, pelvic pressure, back pain, bleeding, or fluid leakage. Instructed to seek immediate care for these symptoms. 6. Lifestyle and Delivery Preparation Reinforced vitamins, nutrition, and safe activity. Discussed plan, pain management, and . Advised on labor preparation (e.g., hospital bag) and expectations. 7. Psychosocial Support Assessed emotional well-being and offered resources for mental health or parenting support.
[2025-04-17 09:27] VITALS: BP 119/74; PULSE 77; RESP 16; TEMP 36.4; O2SAT 97; BMI 34.8
== END 2025-04-17 09:44 | disposition home or self-care (01) ==
LOC: HODSOBC 08:59
PROVIDERS: Supervising Provider Obstetrics & Gynecology; Visit Provider Obstetrics & Gynecology
DX: O09.893 Supervision of other high risk pregnancies, third trimester (principal); O99.891 Other specified diseases and conditions complicating pregnancy; N20.0 Calculus of kidney; Z3A.35 35 weeks gestation of pregnancy; Z36.85 Encounter for antenatal screening for Streptococcus B
CPT/HCPCS: 99214; G0463

== ENCOUNTER 2025-04-25 14:34 | Outpatient (AMB) | payer MEDICAID, SELFPAY ==
[2025-04-25 14:38] VITALS: BP 124/77; PULSE 103; RESP 18; TEMP 36.2; O2SAT 98; BMI 34.6
--- NOTE | 2025-04-25 14:38 | OBCLNT_ITS ---
Vital Signs 04/25/25 14:38 Height 1.52 m Height Method Stated Weight 80.002 kg Weight Measurement Method Standing Scale BMI 34.6 BP 124/77 Blood Pressure Source Automatic Cuff Blood Pressure Location Left Upper Arm Position Sitting Respiration 18 Pulse 103 H Pulse Source Monitor Temp 97.2 F Temp Source Oral Pulse Oximetry (%) 98 Oxygen Delivery Method Room Air Allergies/Home Meds Allergies & Medications Allergies No Known Allergies Allergy (Verified 05/14/25 10:03) Medication Reconciliation prenat.vits,dina,[id number] 1 tab PO QDAY 02/16/21 [History Confirmed 05/14/25] Intake Visit Data Collection New Patient or Established: Established Patient (seen at [facility] within 3 years) Reason for Visit:: OBC Seen by Clinical Staff ONLY (RN/MA): No Blue Split Trimmer Required: No Do You Feel Safe at Home: Yes Authorities Contacted: N/A PCP or OBGYN visit in last 3 months: Yes Date of Last PCP or OBGYN visit: 04/17/25 Hx Now: Yes Are you currently on any form of Control: No Pain Present Currently: No Pain Scale Used: Harding-Bradford/Numerical Pain scale:: 0 Smoking Status Smoking Status: Never smoker Questionnaires Covid-19 Vaccine Questionnaire Has patient been vacinated for Covid-19 Have you been vacinated for Covid-19: Yes PHQ-9 PHQ-2 Over the last 2 weeks, how often have you been bothered by any of the following problems? 1. Little interest or pleasure in doing things: not at all 2. Feeling down, depressed, or hopeless: not at all Total score: 0 PHQ-9 3. Trouble falling or staying asleep, or sleeping too much: Not at all 4. Feeling tired or having little energy: Not at all 5. Poor appetite or overeating: Not at all 6. Feeling bad about yourself - or that you are a failure or have let yourself or your family down: Not at all 7. Trouble concentrating on things, such as reading the newspaper or watching television: Not at all 8. Moving or speaking so slowly that other people could have noticed? - Or the opposite - being so fidgety or restless that you have been moving around a lot more than usual: not at all 9. Thoughts that you would be better off or of hurting yourself in some way: Not at all Total score: 0 If you checked off any problems, how difficult have these problems made it for you to do your work, take care of things at home, or get along with other people?: not difficult at all Source: Developed by Drs. Luc Haji, Lacey Marion, Con Tejeda and colleagues, with an educational christa from [employer]. 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: Past Medical History Past Medical History: No Hx Neurological Disorders, No Hx Cardiac Disorders, No Hx Cancer, No Hx Blood Disorders, No Hx Anemia, No Hx Gastrointestinal Disorders, No Hx Renal Disease, No Hx Diabetes Mellitus Type 1, No Hx Diabetes Mellitus Type 2, No Hx Tubal Ligation and No Hx Hysterectomy Care OB Visit Log OB Flowsheet Initial Weight: Not Recorded Date -?-?-?-?-?-?-?-?-?-?-?-?- EGA Weight BP Alb Glu CTX Pres Fundal ht FHR Mov Dilation Station Effacement Hx Notes Visit Note 10/30/24 -?-?-?-?-?-?-?-?-?-?-?-?- 11w 4d 76.374 kg 128/77 145 Laboratory, Imaging, and Diagnostic Test Results - labs: - Hepatitis B: Negative - Hepatitis C: Negative - RPR: Non-reactive - Rubella: Non-immune - ABO blood type: O - Rh factor: Positive - Antibody screen: Negative - HIV: Negative - Gonorrhea: Negative - Chlamydia: Negative - CBC: - Hemoglobin: 13.2 g/dL - Platelets: 269 - Maternity 21 genome testing: - Negative screening for trisomies and commonly tested genetic mutations - gender: Female - Ultrasound: - Gestational age: 13 weeks and 4 days . Plan: - Estimated due date (PANDA) tentatively s et as April 19, pending confirmation at anatomy ultrasound - Referral to [facility] in [place] for 20-week anatomy ultr asound - Office staff to schedule appointment and obtain insurance approval - Follow-up appointment in one month - Await specialist ultrasound to confirm gestational age and PANDA 11/27/24 -?-?-?-?-?-?-?-?-?-?-?-?- 15w 4d 74.956 kg 124/77 at 19 weeks and 4 days gestation, presents for routine care. Reports feeling well with active FM+, mild back pain considered normal. Denies nausea, vomiting, or cramping. labs completed; awaiting MFM anatomy ultrasound. Needs vitamin refill. FHT 163 bpm. Plan: Refill vitamins ([facility]) Lab slip for glucose screen Reminder for MFM anatomy scan Follow-up in 2 weeks precautions 12/25/24 -?-?-?-?-?-?-?-?-?-?-?-?- 19w 4d 75.807 kg 113/73 at 23w4d with PANDA 04/19/25 presents for routine care. Reports good FM, no CTX/LOF/VB. Denies GUADALUPE/VC/epigastric pain. One-hour GTT was 125 mg/dL (normal). Patient states MFM ultrasound was scheduled but she hasn?t been contacted. Concerned about position, but this is normal for gestational age. No new complaints. Plan: Will call [facility] to gurmeet jarvis MFM appointment status. Patient to complete anatomy scan at [facility]. Continue routine care. Review results when available. Reinforce FM monitoring, preeclampsia precautions, and safety planning for third trimester. Follow up in 4 weeks. 01/22/25 -?-?-?-?-?-?-?-?-?-?-?-?- 23w 4d 76.204 kg 116/72 absent cephalic 28 145 active No CTX/LOF/VB, good FM. FHR 155. On insulin for GDM, reports improved sugars after recent dose adjustment. Injection sites minimally bruised. Awaiting call for twice weekly NSTs. Plan: Continue i nsulin, order CBC/RPR, follow up in 1 week to review glucose log. Aim for delivery at 38w if well-controlled, 37w if not. 02/19/25 -?-?-?-?-?-?--?-?-?-?-?-?- 27w 4d 76.884 kg 120/68 absent cephalic 28 active - Patient reports: - No contractions - Active movement - Denies any new symptoms or concerns - Follow-up appointment scheduled in 2 weeks - Ultrasound scheduled for March 14 at 34 weeks gestation to examine spine - Additional labs to check for anemia pl anned around 34 weeks gestation 03/20/25 -?-?-?-?-?-?-?-?-?-?-?-?- 31w 5d 78.075 kg 110/57 absent cephalic 32 155 active - She was previously admitted to antepartum service for right flank pain attributed to kidney stones and [place] Haro contractions. - Patient reports she is doing well over all. - Regarding her previous flank pain, she continues to experience some discomfort. - She denies current contractions. - Last visit was at 33 weeks and 3 days gestation. - Weekly appointments from now onwards - GBS swab performed - Follow-up ultrasound in 1 week - Cervical check for dilation at 38-39 w eeks 04/01/25 -?-?-?-?-?-?-?-?-?-?-?-?- 33w 3d 79.605 kg 112/67 absent cephalic 34 154 active No contractions, LOF, VB and reports good FM. Patient reports flank pain. Denies GUADALUPE, V C, and epigastric pain. Flank pain - Ongoing, attributed to kidney stone and matthew haro contractions - Recent ED visit to Labor and Deliver y for evaluation - Kidney ultrasound and urinalysis p erformed, results reported as normal - Patient reports pain is still present and unchanged - No reported changes in overall health status or new symptoms Plan - Follow up in 2 weeks - Attend scheduled ultrasound on er - Group B strep culture swab due at next appointment (35-36 weeks) 04/17/25 -?-?-?-?-?-?-?-?-?-?-?-?- 35w 5d 80.484 kg 119/74 absent cephalic 36 145 active - She was previously admitted to antepartum service for right flank pain attributed to kidney stones and [place] Haro contractions. - Patient reports she is doing well over all. - Regarding her previous flank pain, she continues to experience some discomfort. - She denies current contractions. - Weekly appointments from now onwards - GBS swab performed - Follow-up ultrasound in 1 week - Cervical check for dilation at 38-39 w eeks 04/25/25 -?-?-?-?-?-?-?-?-?-?-?-?- 36w 6d 80.002 kg 124/77 absent cephalic 36 155 active No contractions, LOF, VB and reports good FM. Denies GUADALUPE, VC, and epigastric pain. Return in 1 week 05/02/25 -?-?-?-?-?-?-?-?-?-?-?-?- 37w 6d 80.739 kg 121/76 absent cephalic 35 145 active - She reports feeling pressure, which she describes as normal at this gestational age. - Baby remains active with movements fel t primarily in the upper abdomen. - She has prepared for delivery with hos pital bag packed. - She denies wanting shots or injections. - Return visit next week at 39 weeks for cervical examination and membrane sweeping - Check for cervical dilation at next vi sit 05/14/25 -?-?-?-?-?-?-?-?-?-?-?-?- 39w 4d 81.76 kg 117/71 absent cephalic 39 155 active No contractions, LOF, VB and reports good FM. Denies GUADALUPE, VC, and epigastric pain. - Induction of labor scheduled for 05/19 at 40+2/7 weeks gestation due to post-dates - Patient to call labor and delivery uni t at 8 am on 05/19 for admission time - Induction protocol to include cervical ripening agents followed by IV oxytocin - GBS negative, obtained and faxed prior to admission PANDA Calculator Estimated Delivery Date Method Current WG Current Estimate 05/17/25 Ultrasound #1 39w 4d Other Estimates 04/19/25 LMP (Certain) 43w 4d 05/18/25 Ultrasound #2 39w 3d 05/17/25 Manual 39w 4d final panda . efw: 22% Notes Visit Date: 03/20/25 Last Updated by: Evert Iverson MD Problem List - , 35 weeks and 5 days - Kidney stones - [place] Haro contractions - Right flank pain Visit Date: 02/19/25 Last Updated by: Evert Iverson MD - Date: TueFeb 19 2025 - CBC: Hemoglobin 12.31 g/dL - Glucose: 125 mg/dL Office Procedures OBC Clinic LOC & Office Proc's Nursing/Assessment Patient Status: Established Patient OB Clinic Nursing Assessment: Medication Reconciliation, Update PMH in EMR and Vital Signs OB Clinic Coordination of Care: Consent,records obtained, informed consent, Education Simp Pt/Fam, Lab and Imaging orders, Results/Orders obtained and Staff clarify orders Special Needs: Heart tones Established Patient Charge Established Patient Point Assignment: 110 Established Patient Point Charge: EP Level 3 (80-115) Assessment & Plan Diagnosis / Problem List (1) Third trimester : Status: Acute
== END 2025-04-25 14:55 | disposition home or self-care (01) ==
LOC: HODSOBC 14:34
PROVIDERS: Supervising Provider Obstetrics & Gynecology; Visit Provider Obstetrics & Gynecology
DX: Z34.83 Encounter for supervision of other normal pregnancy, third trimester (principal); Z3A.36 36 weeks gestation of pregnancy
CPT/HCPCS: 99213; G0463

== ENCOUNTER 2025-05-02 10:58 | Outpatient (AMB) | payer MEDICAID, SELFPAY ==
[2025-05-02 11:04] VITALS: BP 121/76; PULSE 74; RESP 14; TEMP 36.6; O2SAT 97; BMI 34.9
--- NOTE | 2025-05-02 11:04 | OBCLNT_ITS ---
Vital Signs 05/02/25 11:04 Height 1.52 m Height Method Stated Weight 80.739 kg Weight Measurement Method Standing Scale BMI 34.9 BP 121/76 Blood Pressure Source Automatic Cuff Blood Pressure Location Left Upper Arm Position Sitting Respiration 14 Pulse 74 Pulse Source Monitor Temp 98 F Temp Source Oral Pulse Oximetry (%) 97 Oxygen Delivery Method Room Air Allergies/Home Meds Allergies & Medications Allergies No Known Allergies Allergy (Verified 05/02/25 11:10) Medication Reconciliation prenat.vits,dina,[id number] 1 tab PO QDAY 02/16/21 [History Confirmed 05/02/25] Intake Visit Data Collection New Patient or Established: Established Patient (seen at [facility] within 3 years) Reason for Visit:: CARE Seen by Clinical Staff ONLY (RN/MA): No Bodybuilder Required: No Do You Feel Safe at Home: Yes Authorities Contacted: N/A PCP or OBGYN visit in last 3 months: Yes Hx Now: Yes Are you currently on any form of Control: No Pain Present Currently: No Pain Scale Used: Harding-Bradford/Numerical Pain scale:: 0 Smoking Status Smoking Status: Never smoker Immunizations Flu Vaccine in the Last 12 Months: No Flu Vaccine Exclusion Criteria: No Exclusion Criteria Questionnaires Covid-19 Vaccine Questionnaire Has patient been vacinated for Covid-19 Have you been vacinated for Covid-19: Yes PHQ-9 PHQ-2 Over the last 2 weeks, how often have you been bothered by any of the following problems? 1. Little interest or pleasure in doing things: not at all 2. Feeling down, depressed, or hopeless: not at all Total score: 0 PHQ-9 3. Trouble falling or staying asleep, or sleeping too much: Not at all 4. Feeling tired or having little energy: Not at all 5. Poor appetite or overeating: Not at all 6. Feeling bad about yourself - or that you are a failure or have let yourself or your family down: Not at all 7. Trouble concentrating on things, such as reading the newspaper or watching television: Not at all 8. Moving or speaking so slowly that other people could have noticed? - Or the opposite - being so fidgety or restless that you have been moving around a lot more than usual: not at all 9. Thoughts that you would be better off or of hurting yourself in some way: Not at all Total score: 0 Source: Developed by Drs. Luc Haji, Lacey Marion, Con Tejeda and colleagues, with an educational christa from [employer]. 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 History Past Medical History: No Hx Neurological Disorders, No Hx Cardiac Disorders, No Hx Cancer, No Hx Blood Disorders, No Hx Anemia, No Hx Gastrointestinal Disorders, No Hx Renal Disease, No Hx Diabetes Mellitus Type 1, No Hx Diabetes Mellitus Type 2, No Hx Tubal Ligation and No Hx Hysterectomy Care OB Visit Log OB Flowsheet Initial Weight: Not Recorded Date -?-?-?-?-?-?-?-?-?-?-?-?- EGA Weight BP Alb Glu CTX Pres Fundal ht FHR Mov Dilation Station Effacement Hx Notes Visit Note 10/30/24 -?-?-?-?-?-?-?-?-?-?-?-?- 11w 4d 76.374 kg 128/77 145 Laboratory, Imaging, and Diagnostic Test Results - labs: - Hepatitis B: Negative - Hepatitis C: Negative - RPR: Non-reactive - Rubella: Non-immune - ABO blood type: O - Rh factor: Positive - Antibody screen: Negative - HIV: Negative - Gonorrhea: Negative - Chlamydia: Negative - CBC: - Hemoglobin: 13.2 g/dL - Platelets: 269 - Maternity 21 genome testing: - Negative screening for trisomies and commonly tested genetic mutations - gender: Female - Ultrasound: - Gestational age: 13 weeks and 4 days . Plan: - Estimated due date (PANDA) tentatively s et as April 19, pending confirmation at anatomy ultrasound - Referral to [facility] for 20-week anatomy ultrasound - Office staff to schedule appointment and obtain insurance approval - Follow-up appointment in one month - Await specialist ultrasound to confirm gestational age and PANDA 11/27/24 -?-?-?-?-?-?-?-?-?-?-?-?- 15w 4d 74.956 kg 124/77 at 19 weeks and 4 days gestation, presents for routine care. Reports feeling well with active FM+, mild back pain considered normal. Denies nausea, vomiting, or cramping. labs completed; awaiting MFM anatomy ultrasound. Needs vitamin refill. FHT 163 bpm. Plan: Refill vitamins ([facility]) Lab slip for glucose screen Reminder for MFM anatomy scan Follow-up in 2 weeks precautions 12/25/24 -?-?-?-?-?-?-?-?-?-?-?-?- 19w 4d 75.807 kg 113/73 at 23w4d with PANDA 04/19/25 presents for routine care. Reports good FM, no CTX/LOF/VB. Denies GUADALUPE/VC/epigastric pain. One-hour GTT was 125 mg/dL (normal). Patient states MFM ultrasound was scheduled but she hasn?t been contacted. Concerned about position, but this is normal for gestational age. No new complaints. Plan: Will call [facility]?s to gurmeet jarvis MFM appointment status. Patient to complete anatomy scan at [facility]. Continue routine care. Review results when available. Reinforce FM monitoring, preeclampsia precautions, and safety planning for third trimester. Follow up in 4 weeks. 01/22/25 -?-?-?-?-?-?-?-?-?-?-?-?- 23w 4d 76.204 kg 116/72 absent cephalic 28 145 active No CTX/LOF/VB, good FM. FHR 155. On insulin for GDM, reports improved sugars after recent dose adjustment. Injection sites minimally bruised. Awaiting call for twice weekly NSTs. Plan: Continue i nsulin, order CBC/RPR, follow up in 1 week to review glucose log. Aim for delivery at 38w if well-controlled, 37w if not. 02/19/25 -?-?-?-?-?-?-?-?-?-?-?-?- 27w 4d 76.884 kg 120/68 absent cephalic 28 active - Patient reports: - No contractions - Active movement - Denies any new symptoms or concerns - Follow-up appointment scheduled in 2 weeks - Ultrasound scheduled for March 14 at 34 weeks gestation to examine spine - Additional labs to check for anemia pl anned around 34 weeks gestation 03/20/25 -?-?-?-?-?-?-?-?-?-?-?-?- 31w 5d 78.075 kg 110/57 absent cephalic 32 155 active - She was previously admitted to antepartum service for right flank pain attributed to kidney stones and Matthew Haro contractions. - Patient reports she is doing well over all. - Regarding her previous flank pain, she continues to experience some discomfort. - She denies current contractions. - Last visit was at 33 weeks and 3 days gestation. - Weekly appointments from now onwards - GBS swab performed - Follow-up ultrasound in 1 week - Cervical check for dilation at 38-39 w eeks 04/01/25 -?-?-?-?-?-?-?-?-?-?-?-?- 33w 3d 79.605 kg 112/67 absent cephalic 34 154 active No contractions, LOF, VB and reports good FM. Patient reports flank pain. Denies GUADALUPE, V C, and epigastric pain. Flank pain - Ongoing, attributed to kidney stone and matthew haro contractions - Recent ED visit to Labor and Deliver y for evaluation - Kidney ultrasound and urinalysis p erformed, results reported as normal - Patient reports pain is still present and unchanged - No reported changes in overall health status or new symptoms Plan - Follow up in 2 weeks - Attend scheduled ultrasound on er - Group B strep culture swab due at next appointment (35-36 weeks) 05/02/25 -?-?-?-?-?-?-?-?-?-?-?-?- 37w 6d 80.739 kg 121/76 absent cephalic 35 145 active - She reports feeling pressure, which she describes as normal at this gestational age. - Baby remains active with movements fel t primarily in the upper abdomen. - She has prepared for delivery with hos pital bag packed. - She denies wanting shots or injections. - Return visit next week at 39 weeks for cervical examination and membrane sweeping - Check for cervical dilation at next vi sit PANDA Calculator Estimated Delivery Date Method Current WG Current Estimate 05/17/25 Ultrasound #1 38w 4d Other Estimates 04/19/25 LMP (Certain) 42w 4d 05/18/25 Ultrasound #2 38w 3d 05/17/25 Manual 38w 4d final panda . efw: 22% Notes Visit Date: 03/20/25 Last Updated by: Evert Iverson MD Problem List - , 35 weeks and 5 days - Kidney stones - [place] Haro contractions - Right flank pain Visit Date: 02/19/25 Last Updated by: Evert Iverson MD - Date: TueFeb 19 2025 - CBC: Hemoglobin 12.31 g/dL - Glucose: 125 mg/dL Office Procedures OBC Clinic LOC & Office Proc's Nursing/Assessment Patient Status: Established Patient OB Clinic Nursing Assessment: Medication Reconciliation, Update PMH in EMR and Vital Signs OB Clinic Coordination of Care: Complex Care and Chronic Disease 1-5, Consent,records obtained, informed consent, Education Simp Pt/Fam, 1 Ins Authorization, Lab and Imaging orders, Results/Orders obtained and Staff clarify orders Special Needs: Heart tones Established Patient Charge Established Patient Point Assignment: 150 Established Patient Point Charge: EP Level 4 (120-155) Assessment & Plan Diagnosis / Problem List (1) Third trimester : Status: Acute (2) Lower back pain: Status: Acute Qualifiers: Chronicity: acute Back pain laterality: midline Sciatica presence: without sciatica Qualified Code(s): M54.50 - Low back pain, unspecified (3) Supervision of high risk , unspecified, third trimester: Status: Acute Plan Assessment 37-week and 6-day patient ( 2, para 1) presenting for routine visit with complaint of pelvic pressure. Patient reports feeling pressure, which is consistent with normal physiological changes at this gestational age due to weight and positioning. heart rate documented at 155 beats per minute. Patient reports movement primarily in the upper abdomen. Patient is approaching term gestation at nearly 38 weeks. Plan - Return visit next week at 39 weeks for cervical examination and membrane sweeping - Check for cervical dilation at next visit 1. Progress Reviewed gestational age (37 weeks and 6 days), growth, and heart rate (155 bpm). Planned frequent visits (weekly at this gestational age). 2. Instructed patient to monitor movements and report decreases immediately. 3. Testing Counseled on routine third-trimester labs per guidelines. Discussed potential need for ultrasound or monitoring based on risk factors. 4. Preeclampsia Precaution Educated on preeclampsia signs: severe headache, vision changes, right upper quadrant pain, sudden swelling. Advised urgent reporting of symptoms and discussed blood pressure monitoring if high risk. 5. Labor Precautions Reviewed labor signs: regular contractions, pelvic pressure, back pain, bleeding, or fluid leakage. Instructed to seek immediate care for these symptoms. 6. Lifestyle and Delivery Preparation Reinforced vitamins, nutrition, and safe activity. Discussed plan, pain management, and . Advised on labor preparation (patient confirmed hospital bag is ready) and p ostpartum expectations. Discussed membrane sweeping at next visit at 39 weeks. 7. Psychosocial Support Assessed emotional well-being and offered resources for mental health or parenting support.
== END 2025-05-02 11:16 | disposition home or self-care (01) ==
LOC: HODSOBC 10:58
PROVIDERS: Supervising Provider Obstetrics & Gynecology; Visit Provider Obstetrics & Gynecology
DX: O09.893 Supervision of other high risk pregnancies, third trimester (principal); O99.891 Other specified diseases and conditions complicating pregnancy; M54.50 Low back pain, unspecified; Z3A.37 37 weeks gestation of pregnancy
CPT/HCPCS: 99214; G0463

== ENCOUNTER 2025-05-10 13:21 | Outpatient (AMB) | payer MEDICAID, SELFPAY ==
[2025-05-10 13:29] VITALS: BP 108/76; PULSE 68; RESP 14; TEMP 36.3; O2SAT 97; BMI 34.9
--- NOTE | 2025-05-10 13:29 | OBCLNT_ITS ---
Vital Signs 05/10/25 13:29 Height 1.52 m Height Method Stated Weight 80.796 kg Weight Measurement Method Standing Scale BMI 34.9 BP 108/76 Blood Pressure Source Automatic Cuff Blood Pressure Location Left Upper Arm Position Sitting Respiration 14 Pulse 68 Pulse Source Monitor Temp 97.4 F Temp Source Oral Pulse Oximetry (%) 97 Oxygen Delivery Method Room Air Allergies/Home Meds Allergies & Medications Allergies No Known Allergies Allergy (Verified 05/14/25 10:03) Medication Reconciliation prenat.vits,dina,[id number] 1 tab PO QDAY 02/16/21 [History Confirmed 05/14/25] Intake Visit Data Collection New Patient or Established: Established Patient (seen at [facility] within 3 years) Reason for Visit:: CARE Seen by Clinical Staff ONLY (RN/MA): No Career Development Specialist Required: No Do You Feel Safe at Home: Yes Authorities Contacted: N/A PCP or OBGYN visit in last 3 months: Yes Hx Now: Yes Are you currently on any form of Control: No Pain Present Currently: No Pain Scale Used: Harding-Bradford/Numerical Pain scale:: 0 Smoking Status Smoking Status: Never smoker Immunizations Flu Vaccine in the Last 12 Months: Yes Flu Vaccine Exclusion Criteria: Already Received Questionnaires Covid-19 Vaccine Questionnaire Has patient been vacinated for Covid-19 Have you been vacinated for Covid-19: Yes PHQ-9 PHQ-2 Over the last 2 weeks, how often have you been bothered by any of the following problems? 1. Little interest or pleasure in doing things: not at all 2. Feeling down, depressed, or hopeless: not at all Total score: 0 PHQ-9 3. Trouble falling or staying asleep, or sleeping too much: Not at all 4. Feeling tired or having little energy: Not at all 5. Poor appetite or overeating: Not at all 6. Feeling bad about yourself - or that you are a failure or have let yourself or your family down: Not at all 7. Trouble concentrating on things, such as reading the newspaper or watching television: Not at all 8. Moving or speaking so slowly that other people could have noticed? - Or the opposite - being so fidgety or restless that you have been moving around a lot more than usual: not at all 9. Thoughts that you would be better off or of hurting yourself in some way: Not at all Total score: 0 Source: Developed by Drs. Luc Haji, Lacey Marion, Con Tejeda and colleagues, with an educational christa from [employer]. 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 Past Medical History: No Hx Neurological Disorders, No Hx Cardiac Disorders, No Hx Cancer, No Hx Blood Disorders, No Hx Anemia, No Hx Gastrointestinal Disorders, No Hx Renal Disease, No Hx Diabetes Mellitus Type 1, No Hx Diabetes Mellitus Type 2, No Hx Tubal Ligation and No Hx Hysterectomy Care OB Visit Log OB Flowsheet Initial Weight: Not Recorded Date -?-?-?-?-?-?-?-?-?-?-?-?- EGA Weight BP Alb Glu CTX Pres Fundal ht FHR Mov Dilation Station Effacement Hx Notes Visit Note 10/30/24 -?-?-?-?-?-?-?-?-?-?-?-?- 11w 4d 76.374 kg 128/77 145 Laboratory, Imaging, and Diagnostic Test Results - labs: - Hepatitis B: Negative - Hepatitis C: Negative - RPR: Non-reactive - Rubella: Non-immune - ABO blood type: O - Rh factor: Positive - Antibody screen: Negative - HIV: Negative - Gonorrhea: Negative - Chlamydia: Negative - CBC: - Hemoglobin: 13.2 g/dL - Platelets: 269 - Maternity 21 genome testing: - Negative screening for trisomies and commonly tested genetic mutations - gender: Female - Ultrasound: - Gestational age: 13 weeks and 4 days . Plan: - Estimated due date (PANDA) tentatively s et as April 19, pending confirmation at anatomy ultrasound - Referral to [facility] for 20-week anatomy ultrasound - Office staff to schedule appointment and obtain insurance approval - Follow-up appointment in one month - Await specialist ultrasound to confirm gestational age and PANDA 11/27/24 -?-?-?-?-?-?-?-?-?-?-?-?- 15w 4d 74.956 kg 124/77 at 19 weeks and 4 days gestation, presents for routine care. Reports feeling well with active FM+, mild back pain considered normal. Denies nausea, vomiting, or cramping. labs completed; awaiting MFM anatomy ultrasound. Needs vitamin refill. FHT 163 bpm. Plan: Refill vitamins ([facility]) Lab slip for glucose screen Reminder for MFM anatomy scan Follow-up in 2 weeks precautions 12/25/24 -?-?-?-?-?-?-?-?-?-?-?-?- 19w 4d 75.807 kg 113/73 at 23w4d with PANDA 04/19/25 presents for routine care. Reports good FM, no CTX/LOF/VB. Denies GUADALUPE/VC/epigastric pain. One-hour GTT was 125 mg/dL (normal). Patient states MFM ultrasound was scheduled but she hasn?t been contacted. Concerned about position, but this is normal for gestational age. No new complaints. Plan: Will call [facility]?s to gurmeet jarvis MFM appointment status. Patient to complete anatomy scan at [facility]. Continue routine care. Review results when available. Reinforce FM monitoring, preeclampsia precautions, and safety planning for third trimester. Follow up in 4 weeks. 01/22/25 -?-?-?-?-?-?-?-?-?-?-?-?- 23w 4d 76.204 kg 116/72 absent cephalic 28 145 active No CTX/LOF/VB, good FM. FHR 155. On insulin for GDM, reports improved sugars after recent dose adjustment. Injection sites minimally bruised. Awaiting call for twice weekly NSTs. Plan: Continue i nsulin, order CBC/RPR, follow up in 1 week to review glucose log. Aim for delivery at 38w if well-controlled, 37w if not. 02/19/25 -?-?-?-?-?-?-?-?-?-?-?-?- 27w 4d 76.884 kg 120/68 absent cephalic 28 active - Patient reports: - No contractions - Active movement - Denies any new symptoms or concerns - Follow-up appointment scheduled in 2 weeks - Ultrasound scheduled for March 14 at 34 weeks gestation to examine spine - Additional labs to check for anemia pl anned around 34 weeks gestation 03/20/25 -?-?-?-?-?-?-?-?-?-?-?-?- 31w 5d 78.075 kg 110/57 absent cephalic 32 155 active - She was previously admitted to antepartum service for right flank pain attributed to kidney stones and Nicholas Haro contractions. - Patient reports she is doing well over all. - Regarding her previous flank pain, she continues to experience some discomfort. - She denies current contractions. - Last visit was at 33 weeks and 3 days gestation. - Weekly appointments from now onwards - GBS swab performed - Follow-up ultrasound in 1 week - Cervical check for dilation at 38-39 w eeks 04/01/25 -?-?-?-?-?-?-?-?-?-?-?-?- 33w 3d 79.605 kg 112/67 absent cephalic 34 154 active No contractions, LOF, VB and reports good FM. Patient reports flank pain. Denies GUADALUPE, V C, and epigastric pain. Flank pain - Ongoing, attributed to kidney stone and matthew haro contractions - Recent ED visit to Labor and Deliver y for evaluation - Kidney ultrasound and urinalysis p erformed, results reported as normal - Patient reports pain is still present and unchanged - No reported changes in overall health status or new symptoms Plan - Follow up in 2 weeks - Attend scheduled ultrasound on er - Group B strep culture swab due at next appointment (35-36 weeks) 04/17/25 -?-?-?-?-?-?-?-?-?-?-?-?- 35w 5d 80.484 kg 119/74 absent cephalic 36 145 active - She was previously admitted to antepartum service for right flank pain attributed to kidney stones and Nicholas Haro contractions. - Patient reports she is doing well over all. - Regarding her previous flank pain, she continues to experience some discomfort. - She denies current contractions. - Weekly appointments from now onwards - GBS swab performed - Follow-up ultrasound in 1 week - Cervical check for dilation at 38-39 w eeks 04/25/25 -?-?-?-?-?-?-?-?-?-?-?-?- 36w 6d 80.002 kg 124/77 absent cephalic 36 155 active No contractions, LOF, VB and reports good FM. Denies GUADALUPE, VC, and epigastric pain. Return in 1 week 05/02/25 -?-?-?-?-?-?-?-?-?-?--?-?- 37w 6d 80.739 kg 121/76 absent cephalic 35 145 active - She reports feeling pressure, which she describes as normal at this gestational age. - Baby remains active with movements fel t primarily in the upper abdomen. - She has prepared for delivery with hos pital bag packed. - She denies wanting shots or injections. - Return visit next week at 39 weeks for cervical examination and membrane sweeping - Check for cervical dilation at next vi sit 05/10/25 -?-?-?-?-?-?-?-?-?-?-?-?- 39w 0d 80.796 kg 108/76 absent cephalic 39 155 active - She reports no labor symptoms at this time. - Denies contractions - Baby remains active with normal movement. - She denies any leaking of fluid or rup ture of membranes. - Patient lives in [place], which is close to the hospital. - Return in 1 week - Planned IOL for 40w+ 05/14/25 -?-?-?-?-?-?-?-?-?-?-?-?- 39w 4d 81.76 kg 117/71 absent cephalic 39 155 active No contractions, LOF, VB and reports good FM. Denies GUADALUPE, VC, and epigastric pain. - Induction of labor scheduled for 05/19 at 40+2/7 weeks gestation due to post-dates - Patient to call labor and delivery uni t at 8 am on 05/19 for admission time - Induction protocol to include cervical ripening agents followed by IV oxytocin - GBS negative, obtained and faxed prior to admission PANDA Calculator Estimated Delivery Date Method Current WG Current Estimate 05/17/25 Ultrasound #1 39w 4d Other Estimates 04/19/25 LMP (Certain) 43w 4d 05/18/25 Ultrasound #2 39w 3d 05/17/25 Manual 39w 4d final panda . efw: 22% Notes Visit Date: 03/20/25 Last Updated by: Evert Iverson MD Problem List - , 35 weeks and 5 days - Kidney stones - Nicholas Haro contractions - Right flank pain Visit Date: 02/19/25 Last Updated by: Evert Iverson MD - Date: TueFeb 19 2025 - CBC: Hemoglobin 12.31 g/dL - Glucose: 125 mg/dL Office Procedures OBC Clinic LOC & Office Proc's Nursing/Assessment Patient Status: Established Patient OB Clinic Nursing Assessment: Medication Reconciliation, Update PMH in EMR and Vital Signs OB Clinic Coordination of Care: Complex Care and Chronic Disease 1-5, Consen t,records obtained, informed consent, Education Simp Pt/Fam, Lab and Imaging orders, Results/Orders obtained and Staff clarify orders Special Needs: Heart tones Established Patient Charge Established Patient Point Assignment: 135 Established Patient Point Charge: EP Level 4 (120-155) Assessment & Plan Diagnosis / Problem List (1) Third trimester : Status: Acute (2) Lower back pain: Status: Acute Qualifiers: Chronicity: acute Back pain laterality: midline Sciatica presence: without sciatica Qualified Code(s): M54.50 - Low back pain, unspecified (3) Supervision of high risk , unspecified, third trimester: Status: Acute Plan Assessment 39-week patient () presenting for routine visit with no current labor signs, no contractions, no membrane rupture, and normal heart rate of 160 bpm with active movement. Plan - Return in 1 week - Planned IOL for 40w+
== END 2025-05-10 13:54 | disposition home or self-care (01) ==
PROVIDERS: Supervising Provider Obstetrics & Gynecology; Visit Provider Obstetrics & Gynecology
DX: O09.893 Supervision of other high risk pregnancies, third trimester (principal); O99.891 Other specified diseases and conditions complicating pregnancy; M54.50 Low back pain, unspecified; Z3A.39 39 weeks gestation of pregnancy
CPT/HCPCS: 99214; G0463

== ENCOUNTER 2025-05-14 09:59 | Outpatient (AMB) | payer MEDICAID, SELFPAY ==
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
[2025-05-14 10:08] VITALS: BP 117/71; PULSE 73; RESP 16; TEMP 36.2; O2SAT 98; BMI 35.4
== END 2025-05-14 11:25 | disposition home or self-care (01) ==
PROVIDERS: Supervising Provider Obstetrics & Gynecology; Visit Provider Obstetrics & Gynecology
DX: O09.893 Supervision of other high risk pregnancies, third trimester (principal); O99.891 Other specified diseases and conditions complicating pregnancy; M54.50 Low back pain, unspecified
CPT/HCPCS: 99213; G0463

== ENCOUNTER 2025-05-16 01:41 | Inpatient (IN) | payer MEDICAID, SELFPAY ==
[2025-05-16] VITALS (144 sets, daily range): BP systolic 87–168; BP diastolic 50–88; PULSE 44–117; RESP 16–99; TEMP 36.6–37.2; O2SAT 73–100; BMI 35.5
[2025-05-16 02:26] LABS: ROM Kit Lot # 58106258; ROM Swab Mixed By: PC; Swb Mxed in Solvent 1 min? Yes
[2025-05-16 02:27] LABS: Rupture of Fetal Membranes Positive (Negative)
--- NOTE | 2025-05-16 02:36 | EKG_ITS ---
[facility] Test Date: 2025-05-16 Pat Name: SACHA GRAVES [facility] Gender[facility] Female [employer] Clerk: DHRUV : 2000 Requested By: Susan Ling ([facility]) Pa Order Number: [id number] Reading MD: Susan Ling ([facility]) M Measurements Intervals [place] Rate: 95 P: 30 NC: 142 QRS: 18 QRSD: 85 T: 4 QT: 358 QTc: 452 Interpretive Statements SINUS RHYTHM WITH FREQUENT VENTRICULAR PREMATURE COMPLEXES ABNORMAL RHYTHM ECG No previous ECG available for comparison /[id number]/S0/[id number].pdf
[2025-05-16 03:39] LABS: Basophils # (Auto) 0.1 Thou/mm3 (0.0-0.2); Basophils % (Auto) 1 % (0-2.5); Eosinophils # (Auto) 0.2 Thou/mm3 (0.0-0.5); Eosinophils % (Auto) 2 % (0-10); Hematocrit 37.5 % (36.0-46.0); Hemoglobin 12.6 g/dL (12.0-16.0); Immature Granulocytes Auto 0.03 Thou/mm3 (0.00-0.00); Lymphocytes # (Auto) 2.4 Thou/mm3 (1.0-4.8); Lymphocytes % (Auto) 24 % (10-50); Mean Corpuscular HGB Conc 33.6 g/dl (31.0-37.0); Mean Corpuscular Hemoglobin 28.8 pg (25.0-35.0); Mean Corpuscular Volume 86 fL (80-100); Monocytes # (Auto) 0.8 Thou/mm3 (0.0-0.8); Monocytes % (Auto) 8 % (0-12); Neutrophils # (Auto) 6.4 Thou/mm3 (1.8-7.7); Neutrophils % (Auto) 65 % (37-80); Nucleated Red Blood Cell # 0.00 Thou/mm3 (0.00-0.00); Nucleated Red Blood Cell % 0 /100 WBC (0); Platelet Count 201 Thou/mm3 (140-440); RDW Standard Deviation 46.4 fL (36.4-46.3); Red Blood Count 4.38 Miln/mm3 (4.00-5.20); White Blood Count 9.8 Thou/mm3 (3.6-11.0)
[2025-05-16] MEDS: RINGERS LACTATED 1000 ML 1,000 ML 125 ML IV ×4 (03:51→14:37)
[2025-05-16 04:20] LABS: Alanine Aminotransferase 9 U/L (10-49); Albumin, Serum 4.4 gm/dL (3.5-5.0); Albumin/Globulin Ratio 1.9 (1.2-2.2); Alkaline Phosphatase 112 U/L (46-116); Anion Gap 12 (7-16); Aspartate Amino Transferase 19 U/L (0-34); BUN/Creatinine Ratio 13 Ratio (12-20); Bilirubin,Total 0.3 mg/dL (0.3-1.2); Blood Urea Nitrogen 8 mg/dL (9-23); Calcium 9.6 mg/dL (8.3-10.6); Calcium (Corrected) 9.6 mg/dL (8.5-10.1); Carbon Dioxide 19.4 mMol/L (20.0-31.0); Chloride 108 mMol/L (98-107); Creatinine (Component) 0.6 mg/dL (0.6-1.3); Estimated Creatinine Clearance 135.3 mL/min (>60); Globulin 2.3 gm/dL (2.3-3.5); Glucose 97 mg/dL (74-106); Osmolality,Calculated 275 (275-295); Potassium 4.2 mMol/L (3.4-5.1); Sodium 139 mMol/L (136-145); Total Protein 6.7 gm/dL (5.7-8.2); eGFR > 60 See Note
[2025-05-16 04:28] LABS: Syphilis Nonreactive (Nonreactive)
--- NOTE | 2025-05-16 06:54 | ESHP_ITS ---
Documentation for date of: 05/16/25 OB Labor/Induct. HPI History of Present Illness Chief complaint: Leaking fluids : 3 Para: 1 Term pregnancies: 1 pregnancies: 0 Living children: 1 History of Abortions: Spontaneous and Elective: 1 History of Vaginal deliveries: 1 History of sections: No History of : No Date of last menstrual period: 08/09/24 PANDA: 05/17/25 Gestational Age (weeks): 39 Gestational Age (days): 6 Gestational age based on last menstrual period: 40 History of present illness: The patient is a 25-year-old -0-1-1 at 39-6/7 weeks who presented with ruptured membranes in the middle of the night. Patient was irregular lucero every 3 to 5 minutes AmniSure was positive she was 3 cm 50% -3 station on presentation group B strep negative. She was admitted in early labor. History of Present Dating criteria: LMP confirmed by 1st trimester US Adequate Care: Yes Obstetrical complications: none Medical complications: none Labs Maternal Blood Type: O Pos Labs: Negative: RPR, Hepatitis B, Rubella Titre (Rubella nonimmune), HIV, Chlamydia, Gonorrhea and Group Beta Strep and Unknown: Herpes Type 1, Herpes Type 2 and Covid-19 Review of Systems Review of Systems Narrative Review of Systems: Patient reported good movement leaking fluids no vaginal bleeding no painful contractions Past Medical History Surgical History SURGICAL: Negative Section Meds Home Medications and Allergies Home Medications ?Medication ?Instructions ?Recorded ?Confirmed ?Type prenat.vits,dina,[id number] 1 tab PO QDAY 02/16/21 05/16/25 History Allergies Allergy/AdvReac Type Severity Reaction Status Date / Time No Known Allergies Allergy Verified 05/16/25 02:23 OB Exam Physical Exam Vital signs: Temp Pulse Resp BP Pulse Ox O2 Del Method 98.7 F 66 16 105/62 82 L Room Air 05/16/25 06:20 05/16/25 06:50 05/16/25 03:30 05/16/25 06:50 05/16/25 02:56 05/16/25 03:30 Routine Abdominal Exam Abdominal: Present soft Detailed Labor and Delivery Exam Dilation (cm): 3 Effacement (%): 50 station: -3 Consistency: medium Presentation: Vertex monitor accelerations: 15x15 monitor decelerations: None residential variability: Moderate (11-25) Contraction frequency (min): 3 to 5 minutes Contraction intensity: Mild OB Results Labs 05/16/25 03:03 05/16/25 03:15 Labs: Short CBC 05/16/25 Range/Units 03:03 WBC 9.8 (3.6-11.0) Thou/mm3 Hgb 12.6 (12.0-16.0) g/dL Hct 37.5 (36.0-46.0) % Plt Count 201 (140-440) Thou/mm3 BMP 05/16/25 03:15 Sodium 139 Potassium 4.2 Chloride 108 H Carbon Dioxide 19.4 L BUN 8 L Creatinine 0.6 Glucose 97 Calcium 9.6 Liver Function 05/16/25 Range/Units 03:15 Total Bilirubin 0.3 (0.3-1.2) mg/dL AST 19 (0-34) U/L ALT 9 L (10-49) U/L Alkaline Phosphatase 112 (46-116) U/L Albumin 4.4 (3.5-5.0) gm/dL OB Assessment & Plan Assessment and Plan (1) Supervision of high risk in third trimester: Status: Acute Additional Plan Plan: augmentation and anticipate NVD Additional Plan Comment: If patient fails to make adequate cervical change we will start Pitocin for augmentation.
--- NOTE | 2025-05-16 07:55 | ESPR_ITS ---
Documentation for date of: 05/16/25 OB Labor Progress Note Pain Control Pain control: tolerating well Pelvic Exam Dilation (cm): 3.5 Effacement (%): 70 station: -2 Amniotic membrane status: Ruptured Contractions Monitor mode: Internal Contraction frequency: 3-6 Contraction intensity: Mild Status status: Category l Assessment and Plan Plan OB labor note: begin Pitocin augmentation Comments: Pitocin 2 x 2 written about 7:45 in the morning. Need for Pitocin explained to the patient as she is not progressing since approximately 2 in the morning. All questions answered. History of Present Illness HPI The patient is a 25-year-old -0-1-1 at 39-6/7 weeks who presented with ruptured membranes in the middle of the night. Patient was irregular lucero every 3 to 5 minutes AmniSure was positive she was 3 cm 50% -3 sta tion on presentation group B strep negative. She was admitted in early labor. This morning, patient was seen approximately 7:30 in the morning. She is reporting some mild contractions. Cervix is 3 to 4 cm she has internal monitors already placed. She had epidural at the first baby but does not think she is interested in an epidural this morning.
[2025-05-16] MEDS: OXYTOCIN in NS 30 units 30 UNIT/500 ML BAG IV (08:10)
[2025-05-16] MEDS: MINERAL OIL 30 ML UDC TOP (15:15)
[2025-05-16] MEDS: OXYTOCIN INJ 10 UNIT/ML VIAL IM (15:20)
[2025-05-16] MEDS: TRANEXAMIC ACID 1,000 MG IVPB 1,000 MG/100 ML BAG 200 MG IV (15:26)
--- NOTE | 2025-05-16 15:39 | PD.LDDELS ---
Data (Rios) Data Hx Section: No : 3 Term: 1 : 0 Livin Abortions: Spontaneous & Theraputic: 1 Delivery Data (Rios) Labor Data Initiation of labor: Augmentation Induction/Augmentation Agent: Pitocin ROM date: 05/16/25 ROM time: 01:25 Amniotic membrane rupture type: Spontaneous Amniotic fluid description: Clear Delivery Data EDC: 05/18/25 EDC calculated by:: LMP/early US confirmation Date of arrival to unit: 05/16/25 Time of arrival to unit: 01:41 Onset of labor date: 05/16/25 Onset of labor time: 07:30 Complete dilation date: 05/16/25 Complete dilation time: 14:55 [place] delivery date: 05/16/25 delivery time: 15:16 Gestational age (weeks): 39 Gestational age (days): 5 Placenta delivery date: 05/16/25 Placenta delivery time: 15:26 Stage 1 total time: Labor - Stage 1 Duration 7 hours and 25 minutes Delivered by: Gisselle Kramer Delivery nurse: ashley Rollins nurse: sabrina Lead Burner Helper at delivery: No Support person(s) at delivery: patients mother Delivery Method Delivery method: Normal Vaginal Delivery Presentation: Vertex position: OA Anesthesia Type Anesthesia Type: Epidural Delivery Room Medications Delivery room medications: Pitocin 10 u IM, Pitocin 20 u IV, Cytotec 800 KS and other (txa) Placenta Placenta delivery description: Spontaneous (inspected intact) Cord blood sent to lab: Yes cord blood collection: Cord Blood Type Episiotomy Episiotomy description: None EBL Estimated blood loss (ml): 400 Umbilical Cord cord description: 3 Vessels [place] Data (Rios) Data order: 1 [place]'s gender: Female Identification band number: [id number] 1 minute: 9 5 minutes: 9
[2025-05-16] MEDS: OXYTOCIN in NS 20 units 20 UNIT/1,000 ML BAG 125 UNIT IV (15:51)
[2025-05-16 22:52] LABS: Basophils # (Auto) 0.1 Thou/mm3 (0.0-0.2); Basophils % (Auto) 0 % (0-2.5); Eosinophils # (Auto) 0.1 Thou/mm3 (0.0-0.5); Eosinophils % (Auto) 0 % (0-10); Hematocrit 37.7 % (36.0-46.0); Hemoglobin 12.5 g/dL (12.0-16.0); Immature Granulocytes Auto 0.05 Thou/mm3 (0.00-0.00); Lymphocytes # (Auto) 1.7 Thou/mm3 (1.0-4.8); Lymphocytes % (Auto) 11 % (10-50); Mean Corpuscular HGB Conc 33.2 g/dl (31.0-37.0); Mean Corpuscular Hemoglobin 28.6 pg (25.0-35.0); Mean Corpuscular Volume 86 fL (80-100); Monocytes # (Auto) 0.9 Thou/mm3 (0.0-0.8); Monocytes % (Auto) 6 % (0-12); Neutrophils # (Auto) 12.7 Thou/mm3 (1.8-7.7); Neutrophils % (Auto) 82 % (37-80); Nucleated Red Blood Cell # 0.00 Thou/mm3 (0.00-0.00); Nucleated Red Blood Cell % 0 /100 WBC (0); Platelet Count 180 Thou/mm3 (140-440); RDW Standard Deviation 46.1 fL (36.4-46.3); Red Blood Count 4.37 Miln/mm3 (4.00-5.20); White Blood Count 15.5 Thou/mm3 (3.6-11.0)
[2025-05-17 03:12] VITALS: BP 101/64; PULSE 67; RESP 16; TEMP 36.9; O2SAT 97
[2025-05-17 08:00] VITALS: BP 110/72; PULSE 69; RESP 20; TEMP 36.9; O2SAT 97
[2025-05-17] MEDS: IBUPROFEN TAB 400 MG TABLET 800 MG PO (08:13)
--- NOTE | 2025-05-17 08:14 | PD.LDPPPRG ---
Subjective Subjective Interval history: No complaints of pain. No dizziness. Bonding and breast-feeding Exam Vital Signs Temp Pulse Resp BP Pulse Ox O2 Del Method 98.5 F 67 16 101/64 97 Room Air 05/17/25 03:12 05/17/25 03:12 05/17/25 03:12 05/17/25 03:12 05/17/25 03:12 05/17/25 03:12 Narrative Exam Vital signs stable afebrile. Pressure soft. Fundus firm below the mellitus.. Intact no swelling. Small lochia. Uterus well involuted. 2+ DTRs. Negative home Objective Labs 05/16/25 22:41 05/16/25 03:15 Labs: Laboratory Results - last 24 hr 05/16/25 22:41 WBC 15.5 H D RBC 4.37 Hgb 12.5 Hct 37.7 MCV 86 MCH 28.6 MCHC 33.2 RDW Std Deviation 46.1 Plt Count 180 Neut % (Auto) 82 H Lymph % (Auto) 11 [place]agoner % (Auto) 6 Eos % (Auto) 0 Baso % (Auto) 0 Neut # (Auto) 12.7 H Lymph # (Auto) 1.7 [place]er # (Auto) 0.9 H Eos # (Auto) 0.1 Baso # (Auto) 0.1 Immature Gran # (Auto) 0.05 H Absolute Nucleated RBC 0.00 Immature Gran % 0 Nucleated RBC % 0 Assessment & Plan Problem List (1) Supervision of high risk in third trimester: Status: Acute Assessment Comment Assessment comment: 24 hr pp Plan Comment Plan Comment: Discharge home with baby. Continue vitamins and iron. Tylenol ibuprofen for pain. Discussed danger signs and symptoms and ER precautions. And we discussed signs and symptoms of infection. Increase fluids. Return in 3 weeks visit Time Spent With Patient Time: Total time spent is greater than 50% in coordination of care (as documented) at patient's floor/unit and/or counseling patient:
--- NOTE | 2025-05-17 08:16 | ESDS_ITS ---
DS: Providers Provider Date of admission: 05/16/25 02:33 Primary care physician: Physician No Primary/Family Admitting Provider: Susan Ling MD ([facility]) Attending Provider on Admission: Gisselle Kramer CNM Consults: 05/16/25 17:52 Referral Routine Comment: Attending Provider on DC: Gisselle Kramer CNM Discharging Provider: Gisselle Kramer CNM DS: Diagnosis Problem List Completed Was Problem List Reviewed/Reconciled?: Yes Summary/Hosp Course Brief History: The patient is a 25-year-old -0-1-1 at 39-6/7 weeks who presented with ruptured membranes in the middle of the night. Patient was irregular contract ing every 3 to 5 minutes AmniSure was positive she was 3 cm 50% -3 station on presentation group B strep negative. She was admitted in early labor. This morning, patient was seen approximately 7:30 in the morning. She is reporting some mild contractions. Cervix is 3 to 4 cm she has internal monitors already placed. She had epidural at the first baby but does not think she is interested in an epidural this morning. Peripartum Data Delivery Method: Normal Vaginal Delivery Episiotomy Description: None Laceration Description: no complications: none Time Spent with Patient Time attestation: Total time spent providing and/or coordinating discharge services: Exam Vital Signs Temp Pulse Resp BP Pulse Ox O2 Del Method 98.5 F 67 16 101/64 97 Room Air 05/17/25 03:12 05/17/25 03:12 05/17/25 03:12 05/17/25 03:12 05/17/25 03:12 05/17/25 03:12 Discharge Plan Plan Patient Disposition: HOME (Self Care) Patient condition on transfer: Stable Prescriptions/Referrals Prescriptions/Med Rec: No Action prenat.vits,dina,[id number] Tablet 1 tab PO QDAY Referrals: No Primary/Family,Physician [Primary Care Provider] Patient/Caregiver Discharge Instructions Meds to Beds: No Discharge Activity: resume usual activities Print Language: Turkmen Activity Restrictions/Additional Instructions: Discharge home with baby. Continue vitamins and iron. Tylenol or ibuprofen for pain. Discussed danger signs symptoms and ER precautions. And we discussed signs and symptoms of infection. Return in 3 weeks visit Stand Alone Forms: Gill Award Info., Patient Portal Info Letter Discharge Order Discharge Orders: Discharge (Routine); Ordered 05/17/25 Ordered By: Gisselle Kramer Planned Discharge Date 05/17/25
[2025-05-17 12:00] VITALS: BP 107/72; PULSE 62; RESP 18; TEMP 36.7; O2SAT 98
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
== END 2025-05-17 16:30 | disposition home or self-care (01) | DRG 560 ==
LOC: S4SX 15:47 → S4NX 18:06
PROVIDERS: Admitting Provider Obstetrics & Gynecology; Visit Provider Advanced Practice Midwife
DX: O80 Encounter for full-term uncomplicated delivery (principal); Z37.0 Single live birth; Z3A.39 39 weeks gestation of pregnancy
CPT/HCPCS: 36415; 59025; 80053; 84112; 85025; 86780; 86850; 86900; 86901; 93005; J2590; J2795; J3010; J3490; J7120; S0191; A9270

== ENCOUNTER 2025-05-21 14:10 | Emergency (ER) | payer MEDICAID, SELFPAY ==
[2025-05-21 14:19] VITALS: BP 132/85; PULSE 108; RESP 18; TEMP 37.2; O2SAT 98; BMI 33.0
--- NOTE | 2025-05-21 14:24 | EDNOTE_ITS ---
ED Abdominal Pain RME/HPI General Chief Complaint: Abdominal Pain Stated complaint: VAGINAL DELIVERY ON 05/16, C/O RT UPPER ABD. PAIN Time seen by provider: 05/21/25 14:19 Arrival date/time: 05/21/25 14:10 RME / HPI RME / HPI narrative: 25-year-old female who recently delivered a baby full-term without complications via vaginal delivery 6 days prior who presents to the ER complaining of right lower quadrant pain, nausea which has been intermittent and ongoing since leaving the hospital. Denies fever, diarrhea, urinary symptoms, abnormal vaginal discharge. Patient does report that her vaginal bleeding is subsiding and she has only gone through a pad today. Related Data Home Medications ?Medication ?Instructions ?Recorded ?Confirmed prenat.vits,dina,[id number] 1 tab PO QDAY 02/16/21 05/16/25 Allergies Allergy/AdvReac Type Severity Reaction Status Date / Time No Known Allergies Allergy Verified 05/21/25 14:13 ED Exam Narrative Physical exam: Constitutional: Patient alert and oriented. Well appearing. No acute distress. Not toxic appearing. Head: Normocephalic, atraumatic. Eyes: Periorbital regions bilaterally normal to inspection. Conjunctiva clear bilaterally. Sclera anicteric bilaterally. Pupils equal, round, reactive to light bilaterally. Extraocular movements intact bilaterally. Mouth/Throat: Mucous membranes moist. No stridor or muffled voice. No trismus. Handling secretions without difficulty. Airway widely patent. Neck: Supple. Trachea midline. No JVD. No nuchal rigidity. Normal range of motion. Respiratory: Normal effort. No accessory muscle use or respiratory distress. Lungs clear to auscultation bilaterally without rhonchi, wheezes, or crackles. Cardiovascular: RRR. Normal S1/S2. No murmurs or rubs. Radial pulses intact bilaterally. Abdomen: Soft. Non-distended. Positive mild tenderness to right lower quadrant. No pulsatile mass. No guarding or rebound. Negative Banda?s sign. Negative Rovsing?s. Back: No midline tenderness or step-offs. No CVA tenderness to palpation bilaterally. Upper Extremities: No gross deformities. Lower Extremities: No gross deformities. No edema or calf tenderness. Neuro: Speech normal. No gross motor or sensory deficits to upper or lower extremities bilaterally. GCS 15. CN II?XII grossly intact. Skin: Warm, dry, normal color. Psych: Normal affect. Cooperative. Normal insight. Course Quality Measures none Orders Category Date Time Status CT Screening NOW Care 05/21/25 14:29 Active NPO NOW Care 05/21/25 14:36 Active Diet NPO (NOW) Diet 05/21/25 14:[address] abdomen pelvis w con Stat Exams 05/21/25 14:29 Completed US pelvic complete Stat Exams 05/21/25 14:27 Completed CBC Stat Lab 05/21/25 14:40 Completed CMP [Comprehensive Metabolic Panel] Stat Lab 05/21/25 14:40 Completed Lipase Stat Lab 05/21/25 14:40 Completed Urinalysis Stat Lab 05/21/25 14:50 Completed Ketorolac Inj [Toradol Inj] Med 05/21/25 14:30 Discontinued 30 mg IM X1 ONE Ondansetron Odt [Zofran Odt] Med 05/21/25 14:30 Discontinued 4 mg PO X1 ONE Sodium Chloride 0.9% 1000 ml [Ns] 1,000 ml Med 05/21/25 14:30 Discontinued IV 999 mls/hr Vital Signs Vital signs: Vital Signs Temperature 98.9 F 05/21/25 14:19 Pulse Rate 108 H 05/21/25 14:19 Respiratory Rate 18 05/21/25 14:19 Blood Pressure 132/85 H 05/21/25 14:19 Pulse Oximetry (%) 98 05/21/25 14:19 Oxygen Delivery Method Room Air 05/21/25 14:19 Abdominal Pain MDM MDM Narrative MDM Narrative:: MDM: Suspect Fibroid vs vaginal delivery I considered retained POC however Dr. Ellington reviewed the images and pts lab works and suspects this is a blood clot rather than retained POC STD considered but less likely as patient denies vaginal discharge. Ovarian torsion considered; however, clinical suspicion remains low. Pelvic ultrasound technically limited, with R ovary obscured by bowel gas. No seco ndary signs of torsion or acute pathology noted. CT abdomen and pelvis obtained to further evaluate; study demonstrates no acute intra-abdominal or pelvic pathology. Doubt tubo-ovarian abscess, salpingitis, or PID given no vaginal discharge, fever, dyspareunia, dyschezia, or high-risk sexual behavior. Doubt small bowel obstruction or volvulus as abdomen is soft, nondistended, and without peritoneal findings. Doubt mesenteric ischemia as patient is not a vasculopath, has no history of atrial fibrillation, and denies postprandial pain or blood in stool. Doubt strangulated or incarcerated hernia given absence of skin changes or irreducible mass. Doubt intra-abdominal inflammatory process such as appendicitis or diverticulitis given absence of fever, focal tenderness, or peritoneal signs. Serial abdominal exams remain benign without peritonitis. Patient tolerating oral intake, ambulating without difficulty, and appears clinically well. Discussed results and clinical course with patient. Advised strict return precautions for worsening pain, vomiting, fever, new bleeding, or any change in symptoms. Patient instructed to follow up with primary care provider or [employer] within 24?48 hours for re-evaluation and continued management. Urinalysis shows nonspecific findings that may represent early or mild infection; antibiotics may be started or deferred pending culture results. Patient advised to return for worsening urinary symptoms, fever, or flank pain. Patient data External records reviewed:: [facility] previous records Clinical information provided by:: patient Social determinants that could affect healthcare access:: none Patient has the following chronic illnesses:: As noted How is presenting disease/condition affected by chronic disease/condition?: no chronic disease Evaluation data The following diagnostics were reviewed and interpreted by me:: lab results, radiology exam(s) and other (specify) Lab and/or radiology exams considered but not ordered:: Additional Labs and radiology considered, but not ordered as they were not clinically indicated at this time. Interpretation Summary: CBC without severe leukocytosis, anemia, or thrombocytopenia CMP without severe hyperbilirubinemia, transaminitis, acute renal failure or severe electrolyte derangement Lipase without severe elevation Urine is contaminated with 184 RBCs, 43 WBCs, 8 squamous cells and no bacteria CT scan notes a 16 mm uterine body concerning for a fibroid otherwise no acute intra-abdominal or pelvic abnormality, ultrasound is notable for a 3 x 2.8 cm mass in the uterus concerning for possible retained products of conception and the right ovary is obscured by gas otherwise no acute pelvic abnormality Medications / Prescriptions Medications or Prescriptions considered but not ordered:: I considered prescription management (both outpatient prescriptions AND drug treatment in the ER) and decided that this was necessary and was prescribed as charted. Medication administrations:: Medication Administration History Discontinued Medications Sodium Chloride (Ns) 1,000 mls @ 999 mls/hr IV .Q1H1M ONE Stop: 05/21/25 15:30 Last Infusion: 05/21/25 16:01 Dose: Infused Documented By: Admin: 05/21/25 15:00 Dose: 999 mls/hr Documented By: SEAN Ketorolac Tromethamine (Ketorolac Inj 30 Mg/Ml Vial) 30 mg IM X1 ONE Stop: 05/21/25 14:31 Last Admin: 05/21/25 14:37 Dose: 30 mg Documented By: FERNANDO Ondansetron HCl (Ondansetron Odt 4 Mg Tabrap) 4 mg PO X1 ONE; Protocol Stop: 05/21/25 14:31 Last Admin: 05/21/25 14:37 Dose: 4 mg Documented By: FERNANDO as noted Consultations Consultation(s) initiated? (list below): Yes Consultation #1 (Physician, Specialty, Details): Dr. Ellington, [employer], case and plan along with lab work, ultrasound, CT scan reviewed in detail and she advised patient is safe for discharge with follow-up with her [employer] this week as she suspects the ultrasound finding is likely due to a blood clot rather than retained products of conception, additionally she does not recommend an additional ultrasound and has low suspicion for ovarian torsion. Time: 18:01 Diagnosis Differential diagnosis abdominal pain: abdominal pain, acute appendicitis and constipation Most likely diagnosis given after review of the tests above:: Abdominal Pain NOS Admission Indicated Admission indicated?: not indicated Admission Request Was there a request for admission?: No Disposition Plan Disposition Plan: Discharge Discharge Attestation Discharge Attestation: The patient and all family members were given an opportunity to ask questions and understood the discharge instructions. Discharge instructions specifically effects, indications for sooner follow up or return to the emergency department, and the expected course of current diagnosis. Patient condition: Stable Discharge Plan Plan Patient Disposition: HOME (Self Care) Patient condition on transfer: Stable Prescriptions/Referrals Prescriptions/Med Rec: No Action prenat.vits,dina,[id number] Tablet 1 tab PO QDAY Referrals: Matheus Palacios MD [Primary Care Provider, Family Practice] - In 1 week Problem List Clinical Impression: Abdominal pain, Pelvic pain Patient/Caregiver Discharge Instructions Education Materials: Abdominal Pain, ED Pelvic Pain, Unknown Cause Additional Instructions: Follow up with your primary medical doctor and your [employer] doctor within 24 hours. Return to the Emergency Room immediately for any new, worsening, continuing symptoms or any concerns at all. Return to the Emergency Room within 24 hours if you are unable to follow up with your primary medical doctor and your [employer] doctor within 24 hours. Print Language: Surinamese Stand Alone Forms: Gill Award Info., Patient Portal Info Letter PA/PRIVATE EQUITY ANALYST Supervising Physician PA/PRIVATE EQUITY ANALYST Supervising Physician: Dr. Savanna RUIZ Attestation MD Attestation Dr. Marquis
--- NOTE | 2025-05-21 14:27 | XR_ITS ---
Examination: Pelvic ultrasound, transabdominal, complete Technique: Transabdominal ultrasound of the pelvis performed using grayscale imaging Date and time of exam: May 21, 2025, 1527 hours INDICATIONS: 5 days , right lower abdominal pain FINDINGS: Uterus 13.0 x 10.9 cm, enlarged Blighted and probable retained products of conception in the cervix 3.1 x 2.8 cm and 1.6 x 2.7 cm Uterine fundal endometrial stripe 10 mm Right Duavive scared by bowel gas Left ovary 2.9 cm arterial flow IMPRESSION: enlarged uterus with findings most consistent with retained products of conception in the cervix, consider transvaginal pelvic sonography follow-up
--- NOTE | 2025-05-21 14:29 | XR_ITS ---
Examination: CT abdomen with intravenous contrast CT pelvis with intravenous contrast 2-D coronal reconstructions 2-D sagittal reconstructions Date and time of exam: May 21, 2025, 1537 hours INDICATIONS: 6 days ago with periumbilical pain. CTDI: vol (mGy) 9.07 DLP: (mGycm) 500 Technique: Multiple axial sections of the abdomen and pelvis have been obtained. 64 slice high-resolution scanner used. 3 mm axial sections have been obtained, post intravenous injection 60 cc [id number] 2-D sagittal, coronal reconstructions obtained. Low dose protocols were performed. One or more of the following dose reduction techniques were used; automated exposure control, adjustment of the mA and/or KV according to patient size, use of iterative reconstruction technique. Findings: No visualized liver or splenic lesion No gallstones No pancreatic mass or peripancreatic edema. Normal adrenal glands. 2 mm lower pole nonobstructing left renal calculus, no hydronephrosis or ureteral calculi Normal appendix 9 mm fat-containing umbilical hernia anteverted enlarged uterus posterior uterine body 16 mm mass consistent with fibroid degeneration No pelvic hematoma No adnexal mass Mildly thickened endometrium in the lower uterine segment Contracted urinary bladder Minimal fluid 12 mm at the symphysis IMPRESSION: 2 mm nonobstructing left renal calculus Normal appendix enlarged uterus Suspicious for retained products of conception in the lower uterine segment, please see the transabdominal pelvic sonogram July 21, 2024 1527 hours, recommend transvaginal pelvic sonography follow-up
[2025-05-21] MEDS: ONDANSETRON ODT 4 MG TABRAP PO (14:37)
[2025-05-21] MEDS: KETOROLAC INJ 30 MG/ML VIAL IM (14:37)
[2025-05-21 14:53] LABS: Basophils # (Auto) 0.1 Thou/mm3 (0.0-0.2); Basophils % (Auto) 0 % (0-2.5); Eosinophils # (Auto) 0.4 Thou/mm3 (0.0-0.5); Eosinophils % (Auto) 3 % (0-10); Hematocrit 46.3 % (36.0-46.0); Hemoglobin 15.2 g/dL (12.0-16.0); Immature Granulocytes Auto 0.04 Thou/mm3 (0.00-0.00); Lymphocytes # (Auto) 1.8 Thou/mm3 (1.0-4.8); Lymphocytes % (Auto) 16 % (10-50); Mean Corpuscular HGB Conc 32.8 g/dl (31.0-37.0); Mean Corpuscular Hemoglobin 28.5 pg (25.0-35.0); Mean Corpuscular Volume 87 fL (80-100); Monocytes # (Auto) 0.7 Thou/mm3 (0.0-0.8); Monocytes % (Auto) 6 % (0-12); Neutrophils # (Auto) 8.4 Thou/mm3 (1.8-7.7); Neutrophils % (Auto) 75 % (37-80); Nucleated Red Blood Cell # 0.00 Thou/mm3 (0.00-0.00); Nucleated Red Blood Cell % 0 /100 WBC (0); Platelet Count 299 Thou/mm3 (140-440); RDW Standard Deviation 46.2 fL (36.4-46.3); Red Blood Count 5.33 Miln/mm3 (4.00-5.20); White Blood Count 11.3 Thou/mm3 (3.6-11.0)
[2025-05-21 14:55] LABS: Collection Type, Urine Pedi-Bag
[2025-05-21 14:58] VITALS: BP 144/83; PULSE 96; RESP 18; TEMP 37.2; O2SAT 96
[2025-05-21] MEDS: SODIUM CHLORIDE 0.9% 1000 ML 1,000 ML 999 ML IV (15:00)
[2025-05-21 15:06] LABS: Alanine Aminotransferase 22 U/L (10-49); Albumin, Serum 4.8 gm/dL (3.5-5.0); Albumin/Globulin Ratio 1.8 (1.2-2.2); Alkaline Phosphatase 113 U/L (46-116); Anion Gap 11 (7-16); Aspartate Amino Transferase 28 U/L (0-34); BUN/Creatinine Ratio 13 Ratio (12-20); Bilirubin,Total 0.3 mg/dL (0.3-1.2); Blood Urea Nitrogen 9 mg/dL (9-23); Calcium 10.0 mg/dL (8.3-10.6); Calcium (Corrected) 10.0 mg/dL (8.5-10.1); Carbon Dioxide 26.4 mMol/L (20.0-31.0); Chloride 106 mMol/L (98-107); Creatinine (Component) 0.7 mg/dL (0.6-1.3); Estimated Creatinine Clearance 111.5 mL/min (>60); Globulin 2.7 gm/dL (2.3-3.5); Glucose 102 mg/dL (74-106); Lipase 34 U/L (12-53); Osmolality,Calculated 283 (275-295); Potassium 4.3 mMol/L (3.4-5.1); Sodium 143 mMol/L (136-145); Total Protein 7.5 gm/dL (5.7-8.2); eGFR > 60 See Note
[2025-05-21 15:25] LABS: Bilirubin,Urine Negative (Negative); Blood,Urine 3+ (Negative); Clarity,Urine Turbid (Clear/Hazy); Color,Urine Yellow (Lt Yel-Yel); Glucose, Urine Negative (Negative); Ketones,Urine Negative (Negative); Leukocyte Esterase,Urine Positive (Negative); Nitrite,Urine Negative (Negative); PH,Urine 5.5 (5.0-7.0); Protein,Urine 1+ (Neg - Trace); RBC,Urine 184 /hpf (0-3); Specific Gravity,Urine 1.029 (1.001-1.035); Squamous Epithelial Cell,Urine 8 /hpf (0-5); Urobilinogen,Urine Negative mg/dL (0.0-1.0); WBC,Urine 43 /hpf (0-5)
[2025-05-21 16:06] VITALS: BP 120/83; PULSE 78; RESP 18; TEMP 36.9; O2SAT 97
[2025-05-21 18:20] VITALS: BP 120/82; PULSE 61; RESP 17; TEMP 37.1; O2SAT 98
[2025-05-21 19:10] VITALS: BP 113/98; PULSE 71; RESP 16; TEMP 36.7; O2SAT 98
== END 2025-05-21 19:11 | disposition home or self-care (01) ==
PROVIDERS: Physician Assistant; Emergency Provider Emergency Medicine; PCP Family Medicine
DX: R10.21 Pelvic and perineal pain right side (principal)
CPT/HCPCS: 36415; 74177; 76856; 80053; 81001; 83690; 85025; 96360; 96372; 99284; A4649; J1885; J7030; Q0162; Q9967

== ENCOUNTER 2025-06-04 08:09 | Outpatient (AMB) | payer MEDICAID, SELFPAY ==
--- NOTE | 2025-06-04 08:17 | OBCLNT_ITS ---
Vital Signs 06/04/25 08:18 Weight 75.013 kg Weight Measurement Method Standing Scale BP 123/80 Blood Pressure Source Automatic Cuff Blood Pressure Location Left Upper Arm Position Sitting Respiration 18 Pulse 83 Pulse Source Monitor Temp 97.2 F Temp Source Oral Pulse Oximetry (%) 98 Oxygen Delivery Method Room Air Allergies/Home Meds Allergies & Medications Allergies No Known Allergies Allergy (Verified 06/04/25 08:18) Medication Reconciliation prenat.vits,dina,[id number] 1 tab PO QDAY 02/16/21 [History Confirmed 06/04/25] Immunizations Immunizations Flu Vaccine in the Last 12 Months: No Flu Vaccine Exclusion Criteria: No Exclusion Criteria Care OB Visit Log OB Flowsheet Initial Weight: Not Recorded Date -?-?-?-?-?-?-?-?-?-?-?-?- EGA Weight BP Alb Glu CTX Pres Fundal ht FHR Mov Dilation Station Effacement Hx Notes Visit Note 10/30/24 -?-?-?-?-?-?-?-?-?-?-?-?- 11w 4d 76.374 kg 128/77 145 Laboratory, Imaging, and Diagnostic Test Results - labs: - Hepatitis B: Negative - Hepatitis C: Negative - RPR: Non-reactive - Rubella: Non-immune - ABO blood type: O - Rh factor: Positive - Antibody screen: Negative - HIV: Negative - Gonorrhea: Negative - Chlamydia: Negative - CBC: - Hemoglobin: 13.2 g/dL - Platelets: 269 - Maternity 21 genome testing: - Negative screening for trisomies and commonly tested genetic mutations - gender: Female - Ultrasound: - Gestational age: 13 weeks and 4 days . Plan: - Estimated due date (PANDA) tentatively s et as April 19, pending confirmation at anatomy ultrasound - Referral to [facility] in [place] for 20-week anatomy ultrasound - Office staff to schedule appointment and obtain insurance approval - Follow-up appointment in one month - Await specialist ultrasound to confirm gestational age and PANDA 11/27/24 -?-?-?-?-?-?-?-?-?-?-?-?- 15w 4d 74.956 kg 124/77 at 19 weeks and 4 days gestation, presents for routine care. Reports feeling well with active FM+, mild back pain considered normal. Denies nausea, vomiting, or cramping. labs completed; awaiting MFM anatomy ultrasound. Needs vitamin refill. FHT 163 bpm. Plan: Refill vitamins ([facility]) Lab slip for glucose screen Reminder for MFM anatomy scan Follow-up in 2 weeks precautions 12/25/24 -?-?-?-?-?-?-?-?-?-?-?-?- 19w 4d 75.807 kg 113/73 at 23w4d with PANDA 04/19/25 presents for routine care. Reports good FM, no CTX/LOF/VB. Denies GUADALUPE/VC/epigastric pain. One-hour GTT was 125 mg/dL (normal). Patient states MFM ultrasound was scheduled but she hasn?t been contacted. Concerned about position, but this is normal for gestational age. No new complaints. Plan: Will call [facility] to gurmeet simona MFM appointment status. Patient to complete anatomy scan at [facility]. Continue routine care. Review results when available. Reinforce FM monitoring, preeclampsia precautions, and safety planning for third trimester. Follow up in 4 weeks. 01/22/25 -?-?-?-?-?-?-?-?-?-?-?-?- 23w 4d 76.204 kg 116/72 absent cephalic 28 145 active No CTX/LOF/VB, good FM. FHR 155. On insulin for GDM, reports improved sugars after recent dose adjustment. Injection sites minimally bruised. Awaiting call for twice weekly NSTs. Plan: Continue i nsulin, order CBC/RPR, follow up in 1 week to review glucose log. Aim for delivery at 38w if well-controlled, 37w if not. 02/19/25 -?-?-?-?-?-?-?-?-?-?-?-?- 27w 4d 76.884 kg 120/68 absent cephalic 28 active - Patient reports: - No contractions - Active movement - Denies any new symptoms or concerns - Follow-up appointment scheduled in 2 weeks - Ultrasound scheduled for March 14 at 34 weeks gestation to examine spine - Additional labs to check for anemia pl anned around 34 weeks gestation 03/20/25 -?-?-?-?-?-?-?-?-?-?-?-?- 31w 5d 78.075 kg 110/57 absent cephalic 32 155 active - She was previously admitted to antepartum service for right flank pain attributed to kidney stones and [place] contractions. - Patient reports she is doing well over all. - Regarding her previous flank pain, she continues to experience some discomfort. - She denies current contractions. - Last visit was at 33 weeks and 3 days gestation. - Weekly appointments from now onwards - GBS swab performed - Follow-up ultrasound in 1 week - Cervical check for dilation at 38-39 w eeks 04/01/25 -?-?-?-?-?-?-?-?-?-?-?-?- 33w 3d 79.605 kg 112/67 absent cephalic 34 154 active No contractions, LOF, VB and reports good FM. Patient reports flank pain. Denies GUADALUPE, V C, and epigastric pain. Flank pain - Ongoing, attributed to kidney stone and [place] contractions - Recent ED visit to [facility] Del[facility] for evaluation - Kidney ultrasound and urinalysis p erformed, results reported as normal - Patient reports pain is still present and unchanged - No reported changes in overall health status or new symptoms Plan - Follow up in 2 weeks - Attend scheduled ultrasound on er - Group B strep culture swab due at next appointment (35-36 weeks) 04/17/25 -?-?-?-?-?-?-?-?-?-?-?-?- 35w 5d 80.484 kg 119/74 absent cephalic 36 145 active - She was previously admitted to antepartum service for right flank pain attributed to kidney stones and [place] contractions. - Patient reports she is doing well over all. - Regarding her previous flank pain, she continues to experience some discomfort. - She denies current contractions. - Weekly appointments from now onwards - GBS swab performed - Follow-up ultrasound in 1 week - Cervical check for dilation at 38-39 w eeks 04/25/25 -?-?-?-?-?-?-?-?-?-?-?-?- 36w 6d 80.002 kg 124/77 absent cephalic 36 155 active No contractions, LOF, VB and reports good FM. Denies GUADALUPE, VC, and epigastric pain. Return in 1 week 05/02/25 -?-?-?-?-?-?-?-?-?--?-?-?- 37w 6d 80.739 kg 121/76 absent cephalic 35 145 active - She reports feeling pressure, which she describes as normal at this gestational age. - Baby remains active with movements fel t primarily in the upper abdomen. - She has prepared for delivery with hos pital bag packed. - She denies wanting shots or injections. - Return visit next week at 39 weeks for cervical examination and membrane sweeping - Check for cervical dilation at next vi sit 05/10/25 -?-?-?-?-?-?-?-?-?-?-?-?- 39w 0d 80.796 kg 108/76 absent cephalic 39 155 active - She reports no labor symptoms at this time. - Denies contractions - Baby remains active with normal movement. - She denies any leaking of fluid or rup ture of membranes. - Patient lives in [place], which is close to the hospital. - Return in 1 week - Planned IOL for 40w+ 05/14/25 -?-?-?-?-?-?-?-?-?-?-?-?- 39w 4d 81.76 kg 117/71 absent cephalic 39 155 active No contractions, LOF, VB and reports good FM. Denies GUADALUPE, VC, and epigastric pain. - Induction of labor scheduled for 05/19 at 40+2/7 weeks gestation due to post-dates - Patient to call [facility] and delivery [facility] t at 8 am on 05/19 for admission time - Induction protocol to include cervical ripening agents followed by IV oxytocin - GBS negative, obtained and faxed prior to admission PANDA Calculator Estimated Delivery Date Method Current WG Current Estimate 05/17/25 Ultrasound #1 42w 4d Other Estimates 04/19/25 LMP (Certain) 46w 4d 05/18/25 Ultrasound #2 42w 3d 05/17/25 Manual 42w 4d final panda . efw: 22% Notes Visit Date: 03/20/25 Last Updated by: Evert Iverson MD Problem List - , 35 weeks and 5 days - Kidney stones - [place] contractions - Right flank pain Visit Date: 02/19/25 Last Updated by: Evert Iverson MD - Date: TueFeb 19 2025 - CBC: Hemoglobin 12.31 g/dL - Glucose: 125 mg/dL Office Procedures [facility] Clinic LOC & Office Proc's Nursing/Assessment Patient Status: Established Patient OB Clinic Nursing Assessment: Medication Reconciliation, Update PMH in EMR and Vital Signs OB Clinic Coordination of Care: Consent,records obtained, informed consent, Education Simp Pt/Fam, Lab and Imaging orders, Results/Orders obtained and Staff clarify orders Special Needs: Heart tones Established Patient Charge Established Patient Point Assignment: 110 Established Patient Point Charge: EP Level 3 (80-115)
[2025-06-04 08:18] VITALS: BP 123/80; PULSE 83; RESP 18; TEMP 36.2; O2SAT 98
--- NOTE | 2025-06-04 17:24 | AMBOBPPN_ITS ---
Vital Signs 06/04/25 08:18 06/04/25 17:26 Weight 75.013 kg Weight Measurement Method Standing Scale BP 123/80 123/80 Blood Pressure Source Automatic Cuff Blood Pressure Location Left Upper Arm Position Sitting Respiration 18 18 Pulse 83 83 Pulse Source Monitor Temp 97.2 F 97.2 F Temp Source Oral Pulse Oximetry (%) 98 98 Oxygen Delivery Method Room Air Allergies/Home Meds Allergies & Medications Allergies No Known Allergies Allergy (Verified 06/04/25 08:18) Medication Reconciliation prenat.vits,dina,upp-dzcq-cfwbt 1 tab PO QDAY 02/16/21 [History Confirmed 06/04/25] Intake Visit Data Collection New Patient or Established: Established Patient (seen at [facility] within 3 years) Reason for Visit:: er f/u Do You Feel Safe at Home: Yes Authorities Contacted: N/A PCP or OBGYN visit in last 3 months: Yes Smoking Status Smoking Status: Never smoker Immunizations Flu Vaccine in the Last 12 Months: No Flu Vaccine Exclusion Criteria: 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 Medical History Past Medical History: No Hx Neurological Disorders, No Hx Cardiac Disorders, No Hx Cancer, No Hx Blood Disorders, No Hx Anemia, No Hx Gastrointestinal Disorders, No Hx Renal Disease, No Hx Diabetes Mellitus Type 1, No Hx Diabetes Mellitus Type 2, No Hx Tubal Ligation and No Hx Hysterectomy Questionnaires Social History Living Situation History Lives With: Family Housing: Apartment Tobacco History Smoking Status: Never smoker Second Hand Smoke Exposure: No Alcohol History Alcohol Intake: Never Domestic Abuse History Do You Feel Safe at Home: Yes Care OB Visit Log OB Flowsheet Initial Weight: Not Recorded Date -?-?-?-?-?-?-?-?-?-?-?--?- EGA Weight BP Alb Glu CTX Pres Fundal ht FHR Mov Dilation Station E ffacement Hx Notes Visit Note 10/30/24 -?-?-?-?-?-?-?-?-?-?-?-?- 11w 4d 76.374 kg 128/77 145 Laboratory, Imaging, and Diagnostic Test Results - labs: - Hepatitis B: Negative - Hepatitis C: Negative - RPR: Non-reactive - Rubella: Non-immune - ABO blood type: O - Rh factor: Positive - Antibody screen: Negative - HIV: Negative - Gonorrhea: Negative - Chlamydia: Negative - CBC: - Hemoglobin: 13.2 g/dL - Platelets: 269 - Maternity 21 genome testing: - Negative screening for trisomies and commonly tested genetic mutations - gender: Female - Ultrasound: - Gestational age: 13 weeks and 4 days . Plan: - Estimated due date (PANDA) tentatively s et as April 19, pending confirmation at anatomy ultrasound - Referral to [facility] in [place] for 20-week anatomy ultrasound - Office staff to schedule appointment and obtain insurance approval - Follow-up appointment in one month - Await specialist ultrasound to confirm gestational age and PANDA 11/27/24 -?-?-?-?-?-?-?-?-?-?-?-?- 15w 4d 74.956 kg 124/77 at 19 weeks and 4 days gestation, presents for routine care. Reports feeling well with active FM+, mild back pain considered normal. Denies nausea, vomiting, or cramping. labs completed; awaiting MFM anatomy ultrasound. Needs vitamin refill. FHT 163 bpm. Plan: Refill vitamins ([facility]) Lab slip for glucose screen Reminder for MFM anatomy scan Follow-up in 2 weeks precautions 12/25/24 -?-?-?-?-?-?-?-?-?-?-?-?- 19w 4d 75.807 kg 113/73 at 23w4d with PANDA 04/19/25 presents for routine care. Reports good FM, no CTX/LOF/VB. Denies GUADALUPE/VC/epigastric pain. One-hour GTT was 125 mg/dL (normal). Patient states MFM ultrasound was scheduled but she hasn?t been contacted. Concerned about position, but this is normal for gestational age. No new complaints. Plan: Will call [facility]s to gurmeet jarvis [facility] appointment status. Patient to complete anatomy scan at [facility]. Continue routine care. Review results when available. Reinforce FM monitoring, preeclampsia precautions, and safety planning for third trimester. Follow up in 4 weeks. 01/22/25 -?-?-?-?-?-?-?-?-?-?-?-?- 23w 4d 76.204 kg 116/72 absent cephalic 28 145 active No CTX/LOF/VB, good FM. FHR 155. On insulin for GDM, reports improved sugars after recent dose adjustment. Injection sites minimally bruised. Awaiting call for twice weekly NSTs. Plan: Continue i nsulin, order CBC/RPR, follow up in 1 week to review glucose log. Aim for delivery at 38w if well-controlled, 37w if not. 02/19/25 -?-?-?-?-?-?-?-?-?-?-?-?- 27w 4d 76.884 kg 120/68 absent cephalic 28 active - Patient reports: - No contractions - Active movement - Denies any new symptoms or concerns - Follow-up appointment scheduled in 2 weeks - Ultrasound scheduled for March 14 at 34 weeks gestation to examine spine - Additional labs to check for anemia pl anned around 34 weeks gestation 03/20/25 -?-?-?-?-?-?-?-?-?-?-?-?- 31w 5d 78.075 kg 110/57 absent cephalic 32 155 active - She was previously admitted to antepartum service for right flank pain attributed to kidney stones and [place] contractions. - Patient reports she is doing well over all. - Regarding her previous flank pain, she continues to experience some disc omfort. - She denies current contractions. - Last visit was at 33 weeks and 3 days gestation. - Weekly appointments from now onwards - GBS swab performed - Follow-up ultrasound in 1 week - Cervical check for dilation at 38-39 w eeks 04/01/25 -?-?-?-?-?-?-?-?-?-?-?-?- 33w 3d 79.605 kg 112/67 absent cephalic 34 154 active No contractions, LOF, VB and reports good FM. Patient reports flank pain. Denies GUADALUPE, V C, and epigastric pain. Flank pain - Ongoing, attributed to kidney stone and matthew haro contractions - Recent ED visit to Labor and Deliver y for evaluation - Kidney ultrasound and urinalysis p erformed, results reported as normal - Patient reports pain is still present and unchanged - No reported changes in overall health status or new symptoms Plan - Follow up in 2 weeks - Attend scheduled ultrasound on er - Group B strep culture swab due at next appointment (35-36 weeks) 04/17/25 -?-?-?-?-?-?-?-?-?-?-?-?- 35w 5d 80.484 kg 119/74 absent cephalic 36 145 active - She was previously admitted to antepartum service for right flank pain attributed to kidney stones and [place] contractions. - Patient reports she is doing well over all. - Regarding her previous flank pain, she continues to experience some discomfort. - She denies current contractions. - Weekly appointments from now onwards - GBS swab performed - Follow-up ultrasound in 1 week - Cervical check for dilation at 38-39 w eeks 04/25/25 -?-?-?-?-?-?-?-?-?-?-?-?- 36w 6d 80.002 kg 124/77 absent cephalic 36 155 active No contractions, LOF, VB and reports good FM. Denies GUADALUPE, VC, and epigastric pain. Return in 1 week 05/02/25 -?-?-?-?-?-?-?-?-?-?-?-?- 37w 6d 80.739 kg 121/76 absent cephalic 35 145 active - She reports feeling pressure, which she describes as normal at this gestational age. - Baby remains active with movements fel t primarily in the upper abdomen. - She has prepared for delivery with hos pital bag packed. - She denies wanting shots or injections. - Return visit next week at 39 weeks for cervical examination and membrane sweeping - Check for cervical dilation at next vi sit 05/10/25 -?-?-?-?-?-?-?-?-?-?-?-?- 39w 0d 80.796 kg 108/76 absent cephalic 39 155 active - She reports no labor symptoms at this time. - Denies contractions - Baby remains active with normal movement. - She denies any leaking of fluid or rup ture of membranes. - Patient lives in [place], which is close to the hospital. - Return in 1 week - Planned IOL for 40w+ 05/14/25 -?-?-?-?-?-?-?-?-?-?-?-?- 39w 4d 81.76 kg 117/71 absent cephalic 39 155 active No contractions, LOF, VB and reports good FM. Denies GUADALUPE, VC, and epigastric pain. - Induction of labor scheduled for 05/19 at 40+2/7 weeks gestation due to post-dates - Patient to call labor and delivery uni t at 8 am on 05/19 for admission time - Induction protocol to include cervical ripening agents followed by IV oxytocin - GBS negative, obtained and faxed prior to admission PANDA Calculator Estimated Delivery Date Method Current WG Current Estimate 05/17/25 Ultrasound #1 42w 4d Other Estimates 04/19/25 LMP (Certain) 46w 4d 05/18/25 Ultrasound #2 42w 3d 05/17/25 Manual 42w 4d final panda . efw: 22% Notes Visit Date: 03/20/25 Last Updated by: Evert Iverson MD Problem List - , 35 weeks and 5 days - Kidney stones - [place] contractions - Right flank pain Visit Date: 02/19/25 Last Updated by: Evert Iverson MD - Date: TueFeb 19 2025 - CBC: Hemoglobin 12.31 g/dL - Glucose: 125 mg/dL HPI Interval History: This is a 25-year-old 3 para 2 for visit. Patient had a vaginal delivery May 16, 2025. A baby girl weighing 6 pounds 11. She is breast and bottlefeeding. Patient came for an unscheduled appointment because she had a ER visit on May. Patient went to the ER because she had some right lower pelvic pain that radiated down her leg. A pelvic ultrasound and CT scan were done. Dr. Ellington the OB on-call read both ultrasound and CT scan and felt that her discomfort could be because she had a blood clot in the cervix and patient was sent home in stable condition. The delivery tech and CT had read that one of the rule outs could be a small portion of retained product. Ovarian torsion and other problems were ruled out. Patient feels that she is doing better now. Denies any complaints of pain. She does have cramps from time to time and ibuprofen is helping with that. Denies any fever, chills or foul-smelling discharge. And the patient is happy. Father the baby is not involved. She lives with her mother. 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 Lungs clear no wheezes. Abdomen is soft nontender. Uterus well involuted. Perineum is intact no lacerations. No swelling. Small lochia. Negative Homans' sign. 2+ DTRs. No edema no swelling. Breasts are soft, I palpated abdomen today. Uterus felt well involuted about 3 below umbilicus. No complaints of pain or tenderness with palpation. There is no rebound tenderness. Lochia was small and minimal. Perineum is intact Office Procedures [facility] LOC & Office Proc's Nursing/Assessment Patient Status: Established Patient OB Clinic Nursing Assessment: Medication Reconciliation, Update PMH in EMR and Vital Signs OB Clinic Coordination of Care: Consent,records obtained, informed consent, Education Simp Pt/Fam, Lab and Imaging orders, Results/Orders obtained and Staff clarify orders Special Needs: Heart tones Established Patient Charge Established Patient Point Assignment: 110 Established Patient Point Charge: EP Level 3 (80-115) Assessment & Plan Diagnosis / Problem List (1) Encounter for visit: Status: Acute Plan I reviewed CT and sono's with patient and Dr. Edmonds's findings. She can continue to use ibuprofen and Tylenol for discomfort. I advise no heavy lifting and to increased rest. We discussed ER precautions and worsening signs and symptoms. And patient was scheduled in 2 weeks for follow-up Care Reviewed delivery summary and any complications: Yes Uterus involuted to: 3 below Perineal / incision healing noted: Yes Screened for depression: Yes Depression counseling provided: No Discussed family planning & contraception: Yes Contraception planned: none Counseling on safe resumption of sexual activity: Yes Counseling on gradual excercise: Yes Discussed and concerns (describe), provided support: Yes Referred to collection specialist: No Counseled on good nutrition, hydration, and self care: Yes Reviewed vaccine status: No Chronic & current problems reconciled on problem list: No care discussed; questions answered: feeding Follow up: routine/prn
[2025-06-04 17:26] VITALS: BP 123/80; PULSE 83; RESP 18; TEMP 36.2; O2SAT 98
== END 2025-06-04 09:45 | disposition home or self-care (01) ==
LOC: HODSOBC 08:09
PROVIDERS: PCP Family Medicine; Referring Provider Family Medicine; Supervising Provider Advanced Practice Midwife; Visit Provider Advanced Practice Midwife
DX: Z39.2 Encounter for routine postpartum follow-up (principal); Z39.1 Encounter for care and examination of lactating mother
CPT/HCPCS: 99213; G0463